=== PATIENT | male | born 1965 | race Caucasian/White ===

== ENCOUNTER → 2017-09-20 | Outpatient (CLI) | payer OTHER ==
--- NOTE | 2017-09-20 09:09 | REP ---
CT of the chest without IV contrast: There are no comparison chest CTs or plain film studies. There are numerous nodules and ground-glass densities throughout all lobes of both lungs. The largest nodule is in the lingula inferiorly measuring 2.4 cm. Next largest nodule is in the right middle lobe measuring 17 mm. The remainder of the nodules vary in size between five to 16 mm. There are no focal infiltrates. No pleural effusions. There are borderline enlarged mediastinal aorticopulmonic window lymph nodes measuring up to 9 mm short axis. In the absence of IV contrast the study is insensitive for hilar adenopathy. There is no axillary adenopathy. The unenhanced thoracic aorta is unremarkable. Cardiac size is normal. There is no pericardial effusion. In the visualized upper abdomen. The unenhanced visualized portions of the liver, gallbladder, pancreas and spleen are unremarkable. There is no adrenal mass. Impression: There are no comparison studies. There are numerous solid and ground-glass nodular densities throughout all lobes of each lung. The finding is nonspecific and could represent metastatic disease, bacterial versus fungal infectious disease, collagen vascular disease, and many other possibilities. Signed by Theo Puckett MD 09/20/2017 09:00 A
== END ==
LOC: M RAD 07:55
PROVIDERS: ATTEND Internal Medicine Nephrology
DX: R91.8 Other nonspecific abnormal finding of lung field (principal)

== ENCOUNTER → 2017-09-28 | Outpatient (CLI) | payer OTHER ==
[2017-09-28 14:26] LABS: INR 0.97
== END ==
LOC: M SMT 09:50
PROVIDERS: ATTEND Physician Assistant
DX: R91.8 Other nonspecific abnormal finding of lung field (principal)

== ENCOUNTER → 2017-10-14 | Outpatient (CLI) | payer OTHER ==
[~2017-10-14] MED LIST: ACETAMINOPHEN 325 MG TAB As Ordered; LIDOCAINE 1% MDV 20ML VIAL As Ordered
== END ==
LOC: M RADPRO 09:55
DX: R91.8 Other nonspecific abnormal finding of lung field (principal); Z79.899 Other long term (current) drug therapy; Z88.0 Allergy status to penicillin
CPT/HCPCS: 32405

== ENCOUNTER → 2017-11-18 | Outpatient (CLI) | payer OTHER | LOC: M SLEEP HO 12:45 | DX: R40.0 Somnolence (principal); R06.83 Snoring ==

== ENCOUNTER → 2017-12-15 | Outpatient (CLI) | payer OTHER | LOC: M RAD 07:10 | DX: R91.8 Other nonspecific abnormal finding of lung field (principal) | CPT/HCPCS: 71250 ==

== ENCOUNTER → 2017-12-30 | Outpatient (CLI) | payer OTHER | LOC: M SLEEP 19:44 | DX: G47.33 Obstructive sleep apnea (adult) (pediatric) (principal); G47.61 Periodic limb movement disorder; I49.49 Other premature depolarization | CPT/HCPCS: 95811 ==

== ENCOUNTER → 2018-06-13 | Outpatient (CLI) | payer OTHER | LOC: M RAD 15:37 | DX: R91.8 Other nonspecific abnormal finding of lung field (principal) | CPT/HCPCS: 71250 ==

== ENCOUNTER → 2018-08-15 | Outpatient (REF) | LOC: M SMT 15:18 | DX: Z00.00 Encounter for general adult medical examination without abnormal findings (principal) ==

== ENCOUNTER → 2018-12-05 | Outpatient (REF) | payer OTHER ==
[2018-12-05 13:47] LABS: APPEARANCE, URINE TURBID (CLEAR); BACTERIA, URINE AUTO NEGATIVE (NEGATIVE); BILIRUBIN, URINE AUTO NEGATIVE (NEGATIVE); BLOOD, URINE BLOOD 2+ (NEGATIVE); CALCIUM OXALATE CRYSTALS MODERATE; COLOR, URINE AMBER (YELLOW); GLUCOSE, URINE (UA) AUTO NEGATIVE (NEGATIVE); KETONE, URINE AUTO TRACE mg/dL (NEGATIVE); LEUKOCYTE ESTERASE, URINE AUTO 2+ (NEGATIVE); MUCUS, URINE LARGE (NEGATIVE); NITRITE, URINE AUTO POSITIVE (NEGATIVE); PROTEIN, URINE AUTO 2+ mg/dL (NEGATIVE); RBC, URINE AUTO 52 /HPF (0-3); SPECIFIC GRAVITY URINE AUTO 1.021 (1.002-1.035); SQUAMOUS EPITHELIAL CELL UR AU 1 /HPF (0-6); WBC, URINE AUTO TNTC /HPF (0-3)
== END ==
LOC: M SMT 13:00
PROVIDERS: ATTEND Nurse Practitioner Women's Health
DX: N13.2 Hydronephrosis with renal and ureteral calculous obstruction (principal)

== ENCOUNTER → 2018-12-26 | Outpatient (REF) | payer OTHER | LOC: M SMT 17:09 | PROVIDERS: ATTEND Nurse Practitioner Women's Health | DX: N39.0 Urinary tract infection, site not specified (principal) ==

== ENCOUNTER 2019-01-08 09:12 | Inpatient (IN) | payer OTHER ==
[~2019-01-08] VITALS: Ht 190.5 cm; Wt 145.2 kg
[2019-01-08 11:00] VITALS: BP 112/64
[2019-01-08] MEDS ORDERED: ATOR1TAB21 PO (11:45)
[2019-01-08] MEDS ORDERED: OMEP40CA2 PO (11:45)
[2019-01-08] MEDS ORDERED: POTA10808 PO (11:45)
[2019-01-08] MEDS ORDERED: ALLO100T PO (11:45)
[2019-01-08] MEDS ORDERED: SERT50TA PO (11:45)
[2019-01-08] MEDS ORDERED: LOSA100T50 PO (11:45)
[2019-01-08] MEDS ORDERED: ZYLO300T6 PO (11:45)
[2019-01-08] MEDS ORDERED: AMLO10TA5 PO (11:45)
[2019-01-08] MEDS ORDERED: FURO20TA2 PO (11:45)
[2019-01-08] MEDS ORDERED: LEVA1TAB2 PO (11:45)
[2019-01-08] MEDS ORDERED: PHEN-500 PO (11:46)
[2019-01-08] MEDS ORDERED: KETO10TAB PO (11:46)
[2019-01-08] MEDS ORDERED: CEFT1INJ3 IV (11:51)
[2019-01-08] MEDS ORDERED: ACET500T15 PO (11:51)
[2019-01-08] MEDS ORDERED: MERO1INJ IV (11:51)
[2019-01-08 12:00] VITALS: BP 103/59
[2019-01-08] MEDS ORDERED: ACETAMINOPHEN TAB 650MG DOSE (2X325MG) PO PRN (12:15)
[2019-01-08] MEDS: OMEPRAZOLE 20 MG CAP PO SCH (12:33)
[2019-01-08] MEDS: ATORVASTATIN 20 MG TAB PO SCH (12:34)
[2019-01-08 12:49] LABS: BASO % 0.2 % (0.0-1.0); HEMATOCRIT 36.6 % (42.0-52.0); HEMOGLOBIN 12.1 g/dl (13.5-17.5); LYMPH # 0.8 10^3/uL (1.5-4.5); MEAN CORPUSCULAR HEMOGLOBIN 30.8 pg (27.0-33.0); MEAN CORPUSCULAR HGB CONC 33.1 g/dl (32.0-36.5); MEAN CORPUSCULAR VOLUME 93.1 fl (80.0-96.0); MONO # 1.7 10^3/uL (0.0-0.8); MONO % 8.9 % (0.0-5.0); NEUTROPHILS # 16.5 10^3/uL (1.8-7.7); NEUTROPHILS % 86.5 % (36.0-66.0); PLATELET COUNT, AUTOMATED 170 10^3/uL (150-450); RED BLOOD COUNT 3.93 10^6/uL (4.30-6.10); WHITE BLOOD COUNT 19.1 10^3/uL (4.0-10.0)
[2019-01-08] MEDS: CIPROFLOXACIN 400 MG in APPROPRIATE DILUENT 1 EA IV SCH (13:08)
[2019-01-08] MEDS ORDERED: SLF 3 ML SYR IV PRN (13:15)
[2019-01-08] MEDS: SLF 3 ML SYR IV SCH ×2 (13:34→20:21)
[2019-01-08] MEDS: NS 1,000 ML IV SCH (13:34)
[2019-01-08 13:36] LABS: C REACTIVE PROTEIN QUANTITATIV 6.75 MG/DL (0.00-0.30); CALCIUM LEVEL 7.7 MG/DL (8.5-10.1); CREATININE FOR GFR 1.92 MG/DL (0.70-1.30); GLOMERULAR FILTRATION RATE 39.3 (>56); MAGNESIUM LEVEL 1.7 MG/DL (1.8-2.4); POTASSIUM SERUM 3.2 MEQ/L (3.5-5.1)
[2019-01-08 14:40] LABS: ERYTHROCYTE SEDIMENTATION RATE 16 mm/hr (0-20)
--- NOTE | 2019-01-08 14:44 | HPE ---
DATE OF ADMISSION: 01/08/2019 PRIMARY CARE PROVIDER: Dr. Maloney HISTORY OF PRESENT ILLNESS: The patient is a 54-year-old gentleman with a past medical history significant for kidney stones, recurrent urinary tract infection (UTI), depression, hypertension, who was transferred from [facility] to [facility] on 01/08/2019 for hematuria. The patient stated that he started having blood in the urine since yesterday morning around 5:00 a.m. The urine was dark red and the patient was noted to have right flank pain with radiation to the right groin. The patient also complained about fevers and chills since that time. Denies any other associated symptoms. The patient went to [facility]. The patient was found to have pyelonephritis and hematuria. Request was made for urology evaluation. PAST MEDICAL HISTORY: 1. Urinary tract infection (UTI). 2. Depression. 3. Hypercholesterolemia. 4. Hypertension. 5. Osteoarthritis. 6. Chronic kidney disease stage III. 7. Nephrolithiasis. 8. Obstructive sleep apnea. PAST SURGICAL HISTORY: 1. Gastric bypass. 2. Lithotripsy. 3. Right lung biopsy (benign findings). 4. Left total hip replacement. ALLERGIES: PENICILLIN (severe rash). SOCIAL HISTORY: The patient smoked less than one pack per day for around 8 years, quit in 1995. Denies alcohol use. Denies recreational drug use. REVIEW OF SYSTEMS: GENERAL: The patient complains of fever and chills since yesterday morning. HEENT: No vision changes noted. CARDIOVASCULAR: Denies any chest pain, palpitations. RESPIRATORY: Denies any shortness of breath, cough or wheezes. The patient does have a history of benign lung lesion, status post lung biopsy. The patient also has obstructive sleep apnea and is not on CPAP. GASTROINTESTINAL: Denies any nausea, vomiting, diarrhea, or abdominal pain. GENITOURINARY: The patient complained of hematuria and history of recent urinary tract infection (UTI). Complained of right flank pain with radiation to right groin. MUSCULOSKELETAL: Complains of intermittent lower extremity swelling. No muscle pain or joint pain. NEUROLOGIC: Denies any numbness or tingling. OBJECTIVE: VITAL SIGNS: Temperature 98.6, pulse is 67, respiration rate is 16, blood pressure 103/59, pulse oximetry 92% on room air. LABORATORY DATA: From [facility] from around midnight demonstrated WBC 9.5, hemoglobin 14.3, hematocrit 42.4, platelet count is 211. PT is 9.6, INR is 0.99, PTT is 25.4. Lactic acid 1.2. Sodium is 144, potassium 3.6, chloride 106, carbon dioxide 26, BUN 11, creatinine 1.4, glucose 109, GFR is 53. AST is 17, ALT 29, alkaline phosphatase 90, total bilirubin 0.7, total protein 6.1, albumin 3.3, lipase 185, magnesium 2.1. ASSESSMENT AND PLAN: 1. Sepsis secondary to urinary tract infection (UTI)/pyelonephritis. We will repeat a new set of laboratory data. The patient is currently in the progressive care unit (PCU). The patient had fever, chills, elevated white count. Per the transfer sign out, the patient was reported to have hypotension when the patient was in [facility] and the patient received fluid resuscitation. We will follow with a new set of laboratories. Followup with a new set of urine culture and blood cultures. The patient does have a history of Escherichia (E) coli urinary tract infection (UTI). The patient was started on Ciprofloxacin. The patient does have a penicillin allergy. 2. Hematuria with hydronephrosis. The patient was transferred from [facility] to [facility] for urology evaluation. Dr. Cristobal is notified. Urology consulted. The patient is currently being treated for pyelonephritis. The patient does have a history of kidney stones. Imaging studies were done in [facility]. Renal stone is noted from the scan. 3. Depression. Continue home medications. 4. Chronic kidney disease stage III. Continue to follow renal functions. 5. Hypertension. Per sign out, the patient had hypotension while the patient was at [facility], status post fluid support. When the patient arrived to our facility no hypotension was noted; however, we will continue with fluid support and continue to monitor patient's blood pressure. If the patient does have elevated blood pressure, we will adjust blood pressure medications if needed. At baseline, the patient is taking amlodipine, Lasix and losartan. 6. Deep vein thrombosis (DVT) prophylaxis. Due to hematuria, no anticoagulation will be given at this time. The patient will be on TEDs compressions.
[2019-01-08] MEDS ORDERED: POTASSIUM CHLORIDE 10 MEQ SR TABLET PO ONE (15:00)
[2019-01-08 15:37] LABS: BILIRUBIN, URINE MANUAL 1+ (NEGATIVE); GLUCOSE, URINE (UA) MANUAL NEGATIVE (NEGATIVE); KETONE, URINE MANUAL NEGATIVE (NEGATIVE); UROBILINOGEN, URINE MANUAL 1 MG mg/dl (NORMAL)
[2019-01-08 15:45] LABS: BACTERIA, URINE MOD AMOUNT; HYALINE CAST, URINE NONE SEEN /lpf (0-1); MUCUS, URINE SMALL AMOUNT (NEGATIVE); RBC, URINE TNTC /hpf (0-3); SQUAMOUS EPITHELIAL CELL URINE SMALL AMOUNT /hpf (SMALL AMT)
[2019-01-08 16:00] VITALS: BP_SYST 128; BP_DIAS 66; BP_DIAS 76
[2019-01-08] MEDS ORDERED: PHENAZOPYRIDINE 100 MG TAB PO SCH (16:00)
--- NOTE | 2019-01-08 16:40 | REP ---
Clinical: Hematuria. Technique: Two supine views of the abdomen and pelvis. Findings: Evaluation of the urinary tract system is severely limited due to overlying bowel gas pattern. No obvious urinary tract calcifications appreciated. No bowel obstruction. Skeletal structures intact. Left hip replacement. Impression: No bowel obstruction. Cannot exclude urinary tract calcifications. Electronically Signed by Michael Ivan MD 01/08/2019 04:33 P
[2019-01-08 20:00] VITALS: BP_SYST 120; BP_SYST 131; BP_DIAS 64; BP_DIAS 72
[2019-01-08] MEDS: ALLOPURINOL 300 MG TAB PO SCH (20:20)
[2019-01-08] MEDS: SERTRALINE HCL 50 MG TAB PO SCH (20:20)
[2019-01-09] VITALS (7 sets, daily range): BP systolic 120–160; BP diastolic 66–88
[2019-01-09] MEDS: NS 1,000 ML IV SCH
[2019-01-09] MEDS: CIPROFLOXACIN 400 MG in APPROPRIATE DILUENT 1 EA IV SCH ×2 (02:00→13:11)
[2019-01-09] MEDS: SLF 3 ML SYR IV SCH ×3 (05:30→22:00)
[2019-01-09 05:58] LABS: HEMATOCRIT 34.3 % (42.0-52.0); HEMOGLOBIN 10.9 g/dl (13.5-17.5); MEAN CORPUSCULAR HEMOGLOBIN 30.5 pg (27.0-33.0); MEAN CORPUSCULAR HGB CONC 31.8 g/dl (32.0-36.5); MEAN CORPUSCULAR VOLUME 96.1 fl (80.0-96.0); PLATELET COUNT, AUTOMATED 144 10^3/uL (150-450); RED BLOOD COUNT 3.57 10^6/uL (4.30-6.10); WHITE BLOOD COUNT 12.2 10^3/uL (4.0-10.0)
[2019-01-09 06:12] LABS: CALCIUM LEVEL 7.8 MG/DL (8.5-10.1); CREATININE FOR GFR 1.5 MG/DL (0.70-1.30); GLOMERULAR FILTRATION RATE 52.3 (>56); MAGNESIUM LEVEL 2.1 MG/DL (1.8-2.4); POTASSIUM SERUM 3.7 MEQ/L (3.5-5.1)
[2019-01-09] MEDS: ATORVASTATIN 20 MG TAB PO SCH (08:36)
[2019-01-09] MEDS: ALLOPURINOL 100 MG TAB PO SCH (08:36)
[2019-01-09] MEDS: OMEPRAZOLE 20 MG CAP PO SCH (08:36)
[2019-01-09] MEDS: amLODIPine 10 MG TAB PO SCH (10:47)
--- NOTE | 2019-01-09 12:38 | CR ---
DATE OF CONSULTATION: 01/09/2019 Mr. Royal is much more comfortable today. He has been afebrile overnight. His abdominal exam is benign. Laboratory studies reveal that his white count has come down to 12.2 from 19.1. His creatinine has also improved from 1.92 to 1.5. Results of his urine culture and blood cultures are pending. ASSESSMENT: Clinically improved apparent pyelonephritis with improvement in the patient's overall renal function as well as his white blood cell count. Plan is to hold off on any surgical intervention at this time. We will continue hydration and IV antibiotics. Awaiting the result of cultures. I have spoken to the patient and suggested that he remain in the hospital at least another day until at least the results of his culture are available and we can chose appropriate antibiotics. Will discuss with his primary care physician--can discharge before then as the need arises. ELIZABET
--- NOTE | 2019-01-09 14:05 | CR ---
DATE OF CONSULTATION: 01/08/2019 CHIEF COMPLAINT: 1. Gross hematuria. 2. Apparently right sided pyelonephritis. Franklin Royal is a 54-year-old male who presented to an outside institution yesterday with a short history of gross hematuria that was accompanied by some right sided flank and lower abdominal pain, which radiated to his testicle. The patient was admitted overnight to the outside hospital, but was transferred to [facility] early this morning for further evaluation and management of his persistent gross hematuria. According to the patient, a CT scan was done through the emergency room, which failed to reveal any evidence of stone. Of note, the patient had been seen in the office 2 months earlier and found to have a 2 mm distal right ureteral calculus, which he claims to have passed. He had been asymptomatic over the past few months until yesterday's presentation. Of note, he denies any dysuria. He denies any increased hesitancy. He claims his stream is adequate, though he is voiding smaller amounts. He senses adequate emptying of the bladder. He denies any urgency or urge incontinence. The patient does have a past medical history significant for stone disease, for which he has undergone a lithotripsy in the past. He has never required any endoscopic treatment for stones. He has never had any gross hematuria. Also, of note, the patient had undergone gastric bypass not too long ago. The patient does have a history of chronic kidney disease. PAST MEDICAL HISTORY: The patient's past medical history is significant for depression, hypertension, hypercholesterolemia, chronic kidney disease. SURGICAL HISTORY: Significant for gastric bypass, Extracorporeal shock wave lithotripsy (ESWL) was previously mentioned, total hip replacement. ALLERGIES: He claims to be allergic to PENICILLIN, which causes rash. SOCIAL HISTORY: He denies any alcohol use. He does have a history of tobacco use in the distant past. PHYSICAL EXAMINATION He is a well appearing male, lying in bed in no acute distress. His abdomen is obese, nontender. There are no palpable masses. No rebound or guarding. Specifically, there is no tenderness in the right lower quadrant. Testes are descended bilaterally and nontender. Rectal examination was deferred at this time. LABORATORY STUDIES: Revealed a hematocrit of 36.6, hemoglobin of 12.1, white blood cell count of 19,000 from a reported 9000 earlier from the outside hospital. BUN and creatinine 15/1.9. CT scan performed at an outside hospital, again failed to reveal any evidence of calculus disease, according to the patient. At my request, a KUB was obtained and did not reveal any obvious stones. His urine revealed too numerous to count red blood cells, 230 white blood cells, moderate bacteria per high powered field. He had already been started on Cipro. ASSESSMENT: 1. Gross hematuria. 2. Right flank pain with markedly elevated white count. PLAN: Check the results of his urine culture and continue on Cipro. We will rack_his urine to see if there is any improvement in the hematuria. Depending upon the patient's clinical picture, we will consider ureteroscopy or possible JJ stent placement if there is evidence of return of his pain with rise in his white count or creatinine. I discussed with the patient and his and they understand. The plan is to keep him nothing by mouth past midnight for the possibility of surgery tomorrow. Thank you very much for this consultation. I will be happy to follow along with you. ELIZABET
[2019-01-09] MEDS: ALLOPURINOL 300 MG TAB PO SCH (20:17)
[2019-01-09] MEDS: SERTRALINE HCL 50 MG TAB PO SCH (20:17)
--- NOTE | 2019-01-09 20:48 | IPNPDOC ---
Subjective Date Seen The patient was seen on 01/09/19. Subjective Chief Complaint/HPI Right flank pain, gross hematuria Events since last encounter The patient reports his right sided abdominal pain has nearly resolved. Denies any associated fevers chills or sweats today. Reports dementia appears to be clearing up as well. No nausea or vomiting. Tolerating oral intake. Objective Physical Examination General Exam: Positive: Alert, Cooperative, No Acute Distress Eye Exam: Positive: PERRLA ENT Exam: Positive: Mucous membr. moist/pink Chest Exam: Positive: Clear to auscultation, Normal air movement Heart Exam: Positive: Rate Normal, Normal S1, Normal S2 Abdomen Exam: Positive: Soft, Other (no tenderness in the abdomen. No flank tenderness/costovertebral angle tenderness) Neuro Exam: Positive: Other (awake, alert, oriented 3 and answering questions appropriately.) Assessment /Plan Assessment Acute pyelonephritis without definitive sepsis -Continue IV ciprofloxacin -Urine cultures - no growth -Appreciate input by urology - WBC improving, he was seemed to have resolved and clinically patient is doing better. Continue conservative treatment. -Was treated with IV fluidstolerating oral fluids well. Discontinued IV fluids Hematuria with hydronephrosis. -Was seen by urology. -Improvement clinically Depression. -Ct Zoloft Chronic kidney disease stage III -Creatinine better at 1.5 -Monitor Hypertension. -Continue amlodipine -Discontinue IV fluids Dispo: Possible dc home tmrw Plan/VTE VTE Prophylaxis Ordered?: Yes VS, I&O, 24H, Fishbone Vital Signs/I&O Vital Signs Date Time Temp Pulse Resp B/P (MAP) Pulse Ox O2 Delivery O2 Flow Rate FiO2 01/09/19 16:00 73 92 Room Air 01/09/19 16:00 98.5 17 139/76 (97) I&O- Last 24 Hours up to 6 AM 01/09/19 06:00 Intake Total 840 ml Output Total 1300 ml Balance -460 ml Laboratory Data 24H LABS Laboratory Tests 2 01/09/19 04:32: Nucleated Red Blood Cells % (auto) 0.0, Anion Gap 5L, Glomerular Filtration Rate 52.3L, Blood Urea Nitrogen 17, Creatinine 1.50H, Sodium Level 145, Potassium Level 3.7, Chloride Level 114H, Carbon Dioxide Level 26, Calcium Level 7.8L, Magnesium Level 2.1 CBC/BMP Laboratory Tests 01/09/19 04:32 Red Blood Count 3.57 L, Mean Corpuscular Volume 96.1 H, Mean Corpuscular Hemoglobin 30.5, Mean Corpuscular Hemoglobin Concent 31.8 L, Red Cell Distribution Width 15.2 H, Calcium Level 7.8 L Microbiology Microbiology 01/08/19 Blood Culture - Preliminary, Resulted No growth after 24 hours . All specim... 01/08/19 Blood Culture - Preliminary, Resulted No growth after 24 hours . All specim... 01/08/19 Urine Culture - Final, Complete EDY BUCIO MD Jan 09, 2019 20:48
[2019-01-10] VITALS: BP 120/65
[2019-01-10] MEDS ORDERED: NS 1,000 ML IV SCH
[2019-01-10] MEDS: CIPROFLOXACIN 400 MG in APPROPRIATE DILUENT 1 EA IV SCH (02:04)
[2019-01-10 04:00] VITALS: BP 120/56
[2019-01-10 05:17] LABS: HEMATOCRIT 33.7 % (42.0-52.0); MEAN CORPUSCULAR HEMOGLOBIN 30.9 pg (27.0-33.0); MEAN CORPUSCULAR HGB CONC 32.6 g/dl (32.0-36.5); MEAN CORPUSCULAR VOLUME 94.7 fl (80.0-96.0); PLATELET COUNT, AUTOMATED 150 10^3/uL (150-450); RED BLOOD COUNT 3.56 10^6/uL (4.30-6.10); WHITE BLOOD COUNT 7.7 10^3/uL (4.0-10.0)
[2019-01-10 05:35] LABS: BLOOD UREA NITROGEN 14 MG/DL (7-18); CALCIUM LEVEL 8.1 MG/DL (8.5-10.1); CARBON DIOXIDE LEVEL 27 MEQ/L (21-32); CHLORIDE LEVEL 114 MEQ/L (98-107); CREATININE FOR GFR 1.21 MG/DL (0.70-1.30); GLOMERULAR FILTRATION RATE > 60.0 (>56); GLUCOSE, FASTING 102 MG/DL (70-100); MAGNESIUM LEVEL 2.1 MG/DL (1.8-2.4); POTASSIUM SERUM 3.6 MEQ/L (3.5-5.1); SODIUM LEVEL 146 MEQ/L (136-145)
[2019-01-10] MEDS: SLF 3 ML SYR IV SCH (06:00)
[2019-01-10 08:00] VITALS: BP 144/88
[2019-01-10] MEDS: OMEPRAZOLE 20 MG CAP PO SCH (08:26)
[2019-01-10] MEDS: ALLOPURINOL 100 MG TAB PO SCH (08:26)
[2019-01-10] MEDS: ATORVASTATIN 20 MG TAB PO SCH (08:28)
[2019-01-10] MEDS: amLODIPine 10 MG TAB PO SCH (08:28)
--- NOTE | 2019-01-10 08:51 | IPN ---
DATE: 01/10/2019 Mr. Royal is in hospital day three with gross hematuria and presumed pyelonephritis. The patient is feeling much better. His urine has basically cleared with just a faint tinge of pink in a few of the specimens. His abdominal examination is perfectly benign. He is having no voiding complaints. LABORATORY STUDIES: Revealed that his white count has come all the way down to 7.7 thousand from 19.1 on admission. His creatinine this morning was 1.2, down from 1.9 on admission. His urine culture failed to reveal any bacterial growth as did his blood cultures, though I suspect that reflects the fact that he was started on antibiotics at the outside hospital he was in before coming here. PLAN: Discharge the patient home on oral antibiotics. We will make arrangements for outpatient followup with urology. I have discussed with the patient that he would probably benefit from cystoscopy to evaluate any possible sources of bleeding. Of note, the patient did bring in a stone that he passed at home. It is dark in color and I have asked for it to be sent out for analysis so this will be available as well.
[2019-01-10] MEDS ORDERED: METOPROLOL SUCC *XL* 12.5MG PER 1/2 TAB (TopROL *XL*) PO SCH (09:00)
[2019-01-10] MEDS ORDERED: CIPR500T3 PO (09:53)
[2019-01-10] MEDS ORDERED: METO1TAB32 PO (09:53)
[2019-01-10 10:50] VITALS: BP 144/82
--- NOTE | 2019-01-10 18:37 | DS.PDOC ---
Discharge Summary General Date of Admission Jan 08, 2019 at 10:57 Date of Discharge 01/10/19 Specialist/Consultants Involve: GENE ROPER MD Discharge Summary PROCEDURES PERFORMED DURING STAY: None ADMITTING DIAGNOSES: Sepsis secondary to UTI/pyelonephritis, hematuria with hydronephrosis, depression, chronic kidney disease stage III, hypertension DISCHARGE DIAGNOSES: 1. . COMPLICATIONS/CHIEF COMPLAINT: Pylonephitis,Hematuria. HISTORY OF PRESENT ILLNESS: The patient is a 53-year-old gentleman was transferred to a facility from an outside facility after presenting there with gross hematuria as well as right-sided flank pain along with hypotension with concerns regarding sepsis related to UTI/pyelonephritis in setting of possible nephrolithiasis/urolithiasis HOSPITAL COURSE: Acute pyelonephritis without definitive sepsis -Patient initially had some hypotension on presentation at outside facility, however, has been normotensive during his stay at our facility. -He was treated with IV ciprofloxacin. -He was seen in consultation by urology nightly has pyelonephritis as well as gross hematuria and concern regarding possible stone -Urine cultures showed no growth -The patient was treated with IV fluids with improvement in his WBC count. His WBC count was normal today. He is afebrile. Clinically he has improved with the IV fluids and IV antibiotics. He has inguinal fluids since yesterday and tolerating oral intake well. The rigidity seems to be clearing up as well. Given significant improvement as well as resolution of his initial symptoms, the patient will be discharged home today. He has been cleared by urology as well for discharge. Outpatient follow-up with urology has been advised. Hematuria with hydronephrosis. -Was seen by urology- hematuria has improved as noted. -Outpatient follow up with urology on discharge. Depression. -Ct Zoloft Chronic kidney disease stage III -Creatinine better at 1.21 -Monitor Hypertension. -Continue amlodipine -Discontinue IV fluids DISCHARGE MEDICATIONS: Please see below. ALLERGIES: Please see below. PHYSICAL EXAMINATION ON DISCHARGE: VITAL SIGNS: Please see below. GENERAL: Lying in bed. No distress CARDIOVASCULAR EXAMINATION: S1 S1, heard no rubs or gallops RESPIRATORY EXAMINATION: Clear to auscultation bilaterally ABDOMINAL EXAMINATION: Soft, nontender. No guarding. No rigidity. NEUROLOGICAL EXAMINATION: Awake, alert, answering questions appropriately LABORATORY DATA: Please see below. IMAGING: Abdominal x-ray: Impression: No bowel obstruction. Cannot exclude urinary tract calcifications. ACTIVITY: As tolerated. DIET: 2 g sodium DISCHARGE PLAN: Patient will be discharged home today. Outpatient follow-up with his primary care provider in one week and outpatient follow-up with urology. DISPOSITION: Home ITEMS TO FOLLOWUP ON ON OUTPATIENT: 1. Outpatient follow-up with urology for consideration for outpatient cystoscopy as well as to follow up on results of stone analysis DISCHARGE CONDITION: Stable. TIME SPENT ON DISCHARGE: 35 minutes. Vital Signs/I&Os Vital Signs Date Time Temp Pulse Resp B/P (MAP) Pulse Ox O2 Delivery O2 Flow Rate FiO2 01/10/19 08:28 82 144/88 01/10/19 08:00 97.4 17 96 01/10/19 06:00 Room Air 01/10/19 04:00 2.0 I&O- Last 24 Hours up to 6 AM 01/10/19 06:00 Intake Total 2360 ml Output Total 700 ml Balance 1660 ml Laboratory Data Labs 24H Laboratory Tests 2 01/10/19 04:58: Nucleated Red Blood Cells % (auto) 0.0, Anion Gap 5L, Glomerular Filtration Rate > 60.0, Blood Urea Nitrogen 14, Creatinine 1.21, Sodium Level 146H, Potassium Level 3.6, Chloride Level 114H, Carbon Dioxide Level 27, Calcium Level 8.1L, Magnesium Level 2.1 01/10/19 08:16: CBC/BMP Laboratory Tests 01/10/19 04:58 Red Blood Count 3.56 L, Mean Corpuscular Volume 94.7, Mean Corpuscular Hemoglobin 30.9, Mean Corpuscular Hemoglobin Concent 32.6, Red Cell Distribution Width 14.8 H, Calcium Level 8.1 L Microbiology Microbiology 01/08/19 Blood Culture - Preliminary, Resulted No growth after 24 hours . All specim... 01/08/19 Blood Culture - Preliminary, Resulted No growth after 24 hours . All specim... 01/08/19 Urine Culture - Final, Complete Discharge Medications Scheduled Allopurinol (Allopurinol) 100 Mg Tab, 100 MG PO QAM, (Reported) Allopurinol (Zyloprim) 300 Mg Tab, 300 MG PO QHS, (Reported) Amlodipine Besylate (Amlodipine Besylate) 10 Mg Tab, 10 MG PO DAILY, (Reported) Atorvastatin Calcium (Atorvastatin Calcium) 20 Mg Tab, 20 MG PO DAILY, (Reported) Ciprofloxacin HCl (Ciprofloxacin HCl) 500 Mg Tab, 500 MG PO BID Furosemide (Furosemide) 20 Mg Tab, 10 MG PO DAILY, (Reported) Losartan Potassium (Losartan Potassium) 100 Mg Tab, 100 MG PO DAILY, (Reported) Metoprolol Succinate (Metoprolol Succinate ER) 25 Mg Tab, 12.5 MG PO DAILY Omeprazole (Omeprazole) 40 Mg Cap, 40 MG PO DAILY, (Reported) Phenazopyridine HCl (Phenazopyridine HCl) 100 Mg Tab, 100 MG PO TID, (Reported) Potassium Citrate (Potassium Citrate 10MEQ (Urocit-K)) 1,080 Mg Tab, 1,080 MG PO BID, (Reported) 1080MG = 10MEQ Sertraline Hcl (Sertraline HCl) 50 Mg Tab, 50 MG PO QPM, (Reported) Scheduled PRN Acetaminophen (Acetaminophen) 500 Mg Tab, 1,000 MG PO Q6H PRN for PAIN, (Reported) Ketorolac Tromethamine (Ketorolac Tromethamine) 10 Mg Tab, 10 MG PO Q6H PRN for PAIN, (Reported) Allergies Coded Allergies: Penicillins (Unverified Allergy, Unknown, rash, 01/08/19) EDY BUCIO MD Jan 10, 2019 09:54
== END 2019-01-10 12:43 | disposition home or self-care (01) | DRG 463 ==
LOC: M PCU 10:57
PROVIDERS: ADMIT Internal Medicine; ATTEND Internal Medicine
DX: N39.0 Urinary tract infection, site not specified (principal); N13.30 Unspecified hydronephrosis; N18.3 Chronic kidney disease, stage 3 (moderate); R31.0 Gross hematuria; F32.9 Major depressive disorder, single episode, unspecified; I12.9 Hypertensive chronic kidney disease with stage 1 through stage 4 chronic kidney disease, or unspecified chronic kidney disease; Z79.899 Other long term (current) drug therapy; Z88.0 Allergy status to penicillin; E78.00 Pure hypercholesterolemia, unspecified; M19.90 Unspecified osteoarthritis, unspecified site; G47.33 Obstructive sleep apnea (adult) (pediatric); Z87.891 Personal history of nicotine dependence; N10 Acute pyelonephritis

== ENCOUNTER → 2019-02-07 | Outpatient (REF) | payer OTHER ==
[~2019-02-07] MED LIST changes: +ACET500T15 PO; -ACETAMINOPHEN 325 MG TAB As Ordered; +ALLO100T PO; +AMLO10TA5 PO; +ATOR1TAB21 PO; +CEFT1INJ5 IV; +CIPR500T3 PO; +FURO20TA2 PO; +KETO10TAB PO; +LEVA1TAB2 PO; -LIDOCAINE 1% MDV 20ML VIAL As Ordered; +LOSA100T50 PO; +MERO1INJ IV; +METO1TAB32 PO; +OMEP40CA2 PO; +PHEN-500 PO; +POTA10808 PO; +SERT-141 PO; +ZYLO300T6 PO
[2019-02-07 18:46] LABS: APPEARANCE, URINE MANUAL TURBID (CLEAR)
[2019-02-07 18:47] LABS: BILIRUBIN, URINE MANUAL NEGATIVE (NEGATIVE); BLOOD URINE MANUAL NEGATIVE (NEGATIVE); COLOR, URINE MANUAL YELLOW (YELLOW); GLUCOSE, URINE (UA) MANUAL NEGATIVE (NEGATIVE); KETONE, URINE MANUAL NEGATIVE (NEGATIVE); LEUKOCYTE ESTERASE, URINE MAN TRACE (NEGATIVE); NITRITE, URINE MANUAL NEGATIVE (NEGATIVE); PROTEIN, URINE MANUAL NEGATIVE (NEGATIVE); SPECIFIC GRAVITY,URINE MANUAL 1.025 (1.002-1.035); UROBILINOGEN, URINE MANUAL NORMAL (NORMAL)
[2019-02-07 20:31] LABS: AMORPHOUS SEDIMENT, URINE LARGE AMOUNT (NEGATIVE); BACTERIA, URINE NONE SEEN; HYALINE CAST, URINE NONE SEEN /lpf (0-1); RBC, URINE NONE SEEN /hpf (0-3); SQUAMOUS EPITHELIAL CELL URINE NONE SEEN /hpf (SMALL AMT); WBC, URINE 0-1 /hpf (0-3)
== END ==
LOC: M SMT 17:08
PROVIDERS: ATTEND Nurse Practitioner Women's Health
DX: N39.9 Disorder of urinary system, unspecified (principal)

== ENCOUNTER → 2019-02-09 | Outpatient (CLI) | payer OTHER ==
[2019-02-09 18:23] LABS: BLOOD UREA NITROGEN 13 MG/DL (7-18); CALCIUM LEVEL 8.7 MG/DL (8.5-10.1); CARBON DIOXIDE LEVEL 28 MEQ/L (21-32); CHLORIDE LEVEL 114 MEQ/L (98-107); CREATININE FOR GFR 1.11 MG/DL (0.70-1.30); GLOMERULAR FILTRATION RATE > 60.0 (>56); GLUCOSE, FASTING 96 MG/DL (70-100); POTASSIUM SERUM 4.7 MEQ/L (3.5-5.1); SODIUM LEVEL 145 MEQ/L (136-145)
== END ==
LOC: M SMT 12:08
PROVIDERS: ATTEND Nurse Practitioner Women's Health
DX: R31.0 Gross hematuria (principal); N13.30 Unspecified hydronephrosis

== ENCOUNTER → 2019-02-19 | Outpatient (CLI) | payer OTHER ==
[~2019-02-19] MED LIST changes: +ISOVUE-370 76% 100ML VIAL (Q9967) As Ordered ONE
--- NOTE | 2019-02-20 08:04 | REP ---
Clinical: Gross hematuria. Technique: Axial precontrast, contrast enhanced, and delayed images of the abdomen and pelvis using 100 ml Isovue 370 intravenous contrast material with coronal and sagittal re-formations. Comparison: 10/25/2013. Findings: The left kidney appears mildly atrophic and includes 2 mm nonobstructing lower pole calculus along with very small. Pelvic cysts and no evidence for perinephric stranding or hydroureteronephrosis. The right kidney is normal in size and demonstrates multiple peripelvic cysts measuring up to approximately 17 mm which made by ultrasound be confused with hydronephrosis. However there is no evidence for right-sided hydroureteronephrosis or nephroureterolithiasis. Despite mild left-sided atrophy, the kidneys demonstrate symmetric cortical enhancement. Delayed images demonstrate normal appearance to the collecting system and bladder. Liver, spleen, pancreas, gallbladder, and bilateral adrenal glands are normal. The patient is status post gastric bypass surgery. The enteric system is without obstruction or acute inflammatory process. Normal terminal ileum and appendix are identified in the right lower quadrant. Sigmoid diverticula noted without acute diverticulitis. Pelvis demonstrates normal bladder and prostate/seminal vesicles. No ascites. No free air. 1.2 cm fat containing periumbilical hernia identified. No adenopathy. Surrounding musculoskeletal structures are relatively normal. Evidence of prior left hip replacement. Lung bases are clear. Impression: 1. Mild atrophic appearance to the left kidney with 2 mm nonobstructing lower pole calculus. Few bilateral peripelvic simple cysts (right greater than left). 2. Few sigmoid diverticula without acute diverticulitis. 3. 1.2 cm fat containing periumbilical hernia. 4. Evidence of prior gastric bypass surgery and left hip replacement. Electronically Signed by Michael Ivan MD 02/20/2019 07:56 A
== END ==
LOC: M RAD 14:03
PROVIDERS: ATTEND Nurse Practitioner Women's Health
DX: N13.30 Unspecified hydronephrosis (principal); K44.9 Diaphragmatic hernia without obstruction or gangrene
CPT/HCPCS: 74178; Q9967

== ENCOUNTER → 2019-06-18 | Outpatient (CLI) | payer OTHER ==
[~2019-06-18] MED LIST changes: -ISOVUE-370 76% 100ML VIAL (Q9967) As Ordered ONE
--- NOTE | 2019-06-18 15:18 | REP ---
CT CHEST WITHOUT CONTRAST: HISTORY: Abnormal finding in the lung field. Comparison chest CT studies are reviewed from September 20, 2017, December 15, 2017, and June 13, 2018. CT FINDINGS: Digital preliminary hydramatic mechanic radiograph is unremarkable. There is a stable area of pleural plaquing along the right lower lobe posteriorly. This includes the previously noted 7 mm pleural-based nodular opacity which is again seen and is stable. There is an adjacent calcified right lower lobe granuloma which is unchanged. There is a calcified granuloma in the lingular segment left upper lobe also unchanged. The nodular opacities originally seen on the September 15, [address] study have resolved. No new pulmonary nodule is appreciated. No infiltrate is seen. No pleural or pericardial effusion is noted. No hilar or mediastinal mass is seen. There are scattered stable normal-sized mediastinal lymph nodes. Some vascular calcification is noted in the coronary distribution. The patient is status post gastric bypass procedure. There is a small accessory splenule. IMPRESSION: No acute disease. Electronically Signed by Zak Jonas MD 06/18/2019 04:25 P
== END ==
LOC: M RAD 09:40
PROVIDERS: ATTEND Internal Medicine Pulmonary Disease
DX: R91.8 Other nonspecific abnormal finding of lung field (principal)

== ENCOUNTER → 2019-11-28 | Outpatient (CLI) | payer OTHER ==
[~2019-11-28] MED LIST changes: -OMEP40CA2 PO; +OMEP40CA97 PO
--- NOTE | 2019-11-28 14:51 | REP ---
Clinical: Ureteral calculus. Technique: Two supine views of the abdomen and pelvis. Findings: No obvious urinary tract calcifications are appreciated. Bowel gas pattern is nonspecific. Skeletal structures demonstrate age-related degenerative changes and left hip replacement. Impression: No obvious urinary tract calcifications appreciated. Electronically Signed by Michael Ivan MD 11/28/2019 02:43 P
== END ==
LOC: M RAD 14:12
PROVIDERS: ATTEND Specialist
DX: N20.1 Calculus of ureter (principal)

== ENCOUNTER → 2019-12-04 | Outpatient (REF) | payer OTHER ==
[2019-12-04 13:26] LABS: AMORPHOUS SEDIMENT MODERATE (NEGATIVE); APPEARANCE, URINE TURBID (CLEAR); BACTERIA, URINE AUTO NEGATIVE (NEGATIVE); BILIRUBIN, URINE AUTO NEGATIVE (NEGATIVE); BLOOD, URINE BLOOD NEGATIVE (NEGATIVE); COLOR, URINE YELLOW (YELLOW); GLUCOSE, URINE (UA) AUTO NEGATIVE (NEGATIVE); KETONE, URINE AUTO NEGATIVE (NEGATIVE); LEUKOCYTE ESTERASE, URINE AUTO NEGATIVE (NEGATIVE); MUCUS, URINE SMALL (NEGATIVE); NITRITE, URINE AUTO NEGATIVE (NEGATIVE); PROTEIN, URINE AUTO NEGATIVE (NEGATIVE); RBC, URINE AUTO 0 /HPF (0-3); SPECIFIC GRAVITY URINE AUTO 1.021 (1.002-1.035); SQUAMOUS EPITHELIAL CELL UR AU 0 /HPF (0-6); UROBILINOGEN, URINE AUTO 0.2 mg/dL (0.0-2.0); WBC, URINE AUTO 0 /HPF (0-3)
== END ==
LOC: M SMT 13:01
PROVIDERS: ATTEND Nurse Practitioner Women's Health
DX: N20.0 Calculus of kidney (principal)

== ENCOUNTER 2019-12-20 05:53 | Day surgery (SDC) | payer OTHER ==
[~2019-12-20] VITALS: Ht 193 cm; Wt 130.6 kg
[~2019-12-20 05:53] MED LIST changes: +B-122500 PO; +CALC1TAB42 PO; +CARV3.12 PO; -MERO1INJ IV; +MERO1VIA3 IV; +MISO200T56 PO; +MULTCAP PO; +SUCR1SS PO
[2019-12-20] MEDS ORDERED: LR 1,000 ML IV ONE (06:00)
[2019-12-20] MEDS ORDERED: LIDOCAINE 1% MDV 20ML VIAL SQ PRN (06:00)
[2019-12-20] MEDS ORDERED: CIPROFLOXACIN 400 MG in IV 1 EA IV ONE (06:30)
[2019-12-20] MEDS ORDERED: fentaNYL 100 MCG/2 ML INJECTION (J3010) As Ordered ONE ×2 (07:45→07:48)
[2019-12-20] MEDS ORDERED: LIDOCAINE 2% INJ 100 MG/5 ML SDV (FOR ANES.) As Ordered ONE (07:45)
[2019-12-20] MEDS ORDERED: MIDAZOLAM INJ 2 MG/2 ML VIAL (J2250) As Ordered ONE (07:45)
[2019-12-20] MEDS ORDERED: ONDANSETRON 4MG/2ML VIAL (J2405) As Ordered ONE (07:45)
[2019-12-20] MEDS ORDERED: propofoL 200 MG/20 ML VIAL As Ordered ONE (07:46)
[2019-12-20] MEDS ORDERED: KETAMINE HCL 200 MG/20 ML VIAL As Ordered ONE (07:49)
[2019-12-20] MEDS ORDERED: ONDANSETRON 4MG/2ML VIAL (J2405) IV PRN (08:30)
[2019-12-20] MEDS ORDERED: LR 1,000 ML IV SCH (08:30)
[2019-12-20] MEDS ORDERED: oxyCODONE 5MG TAB PO PRN (08:30)
[2019-12-20 08:40] VITALS: BP 133/82
[2019-12-20] MEDS ORDERED: PERCOCET 5MG/325MG TAB PO PRN (08:45)
--- NOTE | 2019-12-21 07:39 | RO ---
DATE OF PROCEDURE: 12/20/2019 PREPROCEDURE DIAGNOSIS: Left kidney stone. POSTPROCEDURE DIAGNOSIS: Left kidney stone. PROCEDURE: Left extracorporeal shock wave lithotripsy. SURGEON: Mitchell Garcia MD CLINICAL APPEALS AUDITOR: None ANESTHESIA: Monitored anesthesia care (MAC). OPERATIVE INDICATIONS: This is a 54-year-old male who was found to have an approximately 1 cm nonobstructing left kidney stone. He is brought to the operating room today for above-listed procedure. DESCRIPTION OF PROCEDURE: The patient was brought to the operating room and MAC was administered. Prophylactic antibiotics were infused. He was then placed in supine position in preparation first for a left-sided extracorporeal shock wave lithotripsy. Shock waves were then delivered to the left-sided kidney stone, ungated. Of note, ultrasound was utilized to monitor stone position and fragmentation throughout the procedure. The stone did appear to fragment well. There were no arrhythmias. After 2500 shocks, the procedure was concluded. The patient was then awakened from anesthesia and transported to the recovery room in stable condition. ESTIMATED BLOOD LOSS: Zero mL. COMPLICATIONS: None. SPECIMENS: None. PLAN: The patient will followup in clinic in a few weeks for postoperative visit. ELIZABET
== END 2019-12-20 08:57 | disposition home or self-care (01) ==
LOC: M SDC 05:53
PROVIDERS: ATTEND Urology
DX: N20.0 Calculus of kidney (principal); I10 Essential (primary) hypertension; G47.30 Sleep apnea, unspecified; M19.90 Unspecified osteoarthritis, unspecified site; K25.9 Gastric ulcer, unspecified as acute or chronic, without hemorrhage or perforation; Z98.890 Other specified postprocedural states; Z87.442 Personal history of urinary calculi; Z98.84 Bariatric surgery status; Z87.891 Personal history of nicotine dependence; Z79.899 Other long term (current) drug therapy
CPT/HCPCS: 50590; J0744; J2250; J2405; J3010

== ENCOUNTER → 2019-12-31 | Outpatient (CLI) | payer OTHER ==
--- NOTE | 2020-01-01 23:10 | SLEEPCENT ---
DATE OF PROCEDURE: 12/31/2019 Ordered by: Terrence Mata PA-C Nocturnal polysomnography was performed in an attempt to titrate pressure therapy in this patient with obstructive sleep apnea syndrome. Apnea-hypopnea index 55.7. For testing, a ResMed Mirage FX nasal mask of standard size was used, 4 cm of water pressure applied to the circuit and the lights were extinguished. 7 hours and 6 minutes of data were reviewed. There were 302 minutes of sleep identified. Sleep latency was short at 4.5 minutes. REM latency was prolonged at 365 minutes. Sleep architecture showed poor progression with one REM cycle late in the test. Overall sleep efficiency was 71.7%. The electrocardiogram showed what appeared to be a sinus rhythm with frequent PVCs. EEG showed reasonably normal waveforms for awake and sleep. Titration was complicated by the emergence of central apneas at pressures exceeding 15. Late in the study pressures were increased. Best sleep was seen on a C-PAP pressure of 14. IMPRESSION Obstructive sleep apnea syndrome (G47.33) RECOMMENDATIONS Initiation of C-PAP at a pressure of 14 would seem reasonable based on these findings, however, as palliation was incomplete, if after becoming accustomed to the use of the device the patient has persistence of sleep symptoms, a return to the sleep disorder center for a full night titration may be helpful.
== END ==
LOC: M SLEEP 20:00
PROVIDERS: ATTEND Physician Assistant
DX: G47.33 Obstructive sleep apnea (adult) (pediatric) (principal)

== ENCOUNTER → 2020-01-07 | Outpatient (CLI) | payer OTHER ==
--- NOTE | 2020-01-07 17:03 | REP ---
RENAL ULTRASOUND: Real-time sonographic evaluation the kidneys performed. The patient reportedly has had lithotripsy 12/20/2019. Right kidney measures approximately 12.3 x 5.9 x 5.7 cm. Left kidney measures 13.7 x 6.1 x 6.3 cm. There is mild right hydronephrosis. There appears to be a large fluid collection involving the left kidney along the cortical surface, possibly a subcapsular fluid collection. This measures 8.4 x 5.6 x 7.7 cm. No left hydronephrosis is visualized. The ureteral jets are visualized in the urinary bladder bilaterally with Doppler color evaluation. IMPRESSION: Mild right hydronephrosis. Fluid collection along the cortex of the left kidney may represent a subcapsular fluid collection 8.4 x 5.6 x 7.7 cm. Ureteral jets seen in the urinary bladder bilaterally. Electronically Signed by Theo Hernandez MD 01/08/2020 10:24 A
== END ==
LOC: M RAD 14:29
PROVIDERS: ATTEND Nurse Practitioner Women's Health
DX: N20.0 Calculus of kidney (principal)

== ENCOUNTER → 2020-06-03 | Outpatient (REF) | payer OTHER ==
[~2020-06-03] MED LIST changes: -AMLO10TA5 PO; +AMLO1TAB25 PO
== END ==
LOC: M LAB REF 17:41
PROVIDERS: ATTEND Nurse Practitioner Family
DX: R80.9 Proteinuria, unspecified (principal)

== ENCOUNTER 2021-06-13 20:33 | Inpatient (IN) | payer MEDICARE, OTHER ==
[~2021-06-13] VITALS: Ht 193 cm; Wt 138.6 kg
[~2021-06-13 20:33] MED LIST changes: +OMEP40CA4 PO; -OMEP40CA97 PO
[2021-06-13] MEDS ORDERED: KETOROLAC 30 MG/ML 1ML VIAL IV PRN (21:15)
[2021-06-13] MEDS ORDERED: ONDANSETRON 4MG/2ML VIAL IV PRN (21:15)
[2021-06-13] MEDS ORDERED: ACETAMINOPHEN TAB 650MG DOSE (2X325MG) PO PRN (21:15)
[2021-06-13] MEDS ORDERED: LR 1,000 ML IV SCH (21:45)
[2021-06-13 22:32] VITALS: BP 140/71
[2021-06-13] MEDS: metroNIDAZOLE 500 MG in IV 1 EA IV SCH ×2 (22:50→23:00)
[2021-06-13] MEDS: CIPROFLOXACIN 400 MG in IV 1 EA IV SCH (22:57)
[2021-06-13] MEDS ORDERED: ZOLO100T PO (23:06)
[2021-06-13] MEDS ORDERED: CALC1TAB30 PO (23:06)
[2021-06-13] MEDS ORDERED: ALLO300T2 PO (23:06)
[2021-06-13] MEDS ORDERED: SUCR1TAB56 PO (23:06)
[2021-06-13] MEDS ORDERED: VITA500T73 PO (23:06)
[2021-06-13] MEDS ORDERED: VITMTA PO (23:06)
[2021-06-13] MEDS ORDERED: HOME MED LIST COMPLETE! XX SCH (23:10)
[2021-06-14] VITALS (8 sets, daily range): BP systolic 131–169; BP diastolic 69–82
[2021-06-14] MEDS: MORPHINE 2 MG/ML 1ML VIAL (J2270) IV PRN ×2 (01:16→06:52)
[2021-06-14] MEDS: metroNIDAZOLE 500 MG in IV 1 EA IV SCH ×3 (05:36→21:26)
[2021-06-14 05:39] LABS: BASO % 0.2 % (0.0-1.0); EOS % 0.4 % (0.0-3.0); HEMATOCRIT 24.9 % (42.0-52.0); HEMOGLOBIN 7.6 g/dl (13.5-17.5); LYMPH % 8.8 % (24.0-44.0); MEAN CORPUSCULAR HEMOGLOBIN 25.4 pg (27.0-33.0); MEAN CORPUSCULAR HGB CONC 30.5 g/dl (32.0-36.5); MEAN CORPUSCULAR VOLUME 83.3 fl (80.0-96.0); MONO # 1.1 10^3/uL (0.0-0.8); MONO % 9.4 % (2.0-8.0); NEUTROPHILS # 9.2 10^3/uL (1.5-8.5); NEUTROPHILS % 80.8 % (36.0-66.0); PLATELET COUNT, AUTOMATED 203 10^3/uL (150-450); RED BLOOD COUNT 2.99 10^6/uL (4.30-6.10); WHITE BLOOD COUNT 11.4 10^3/uL (4.0-10.0)
--- NOTE | 2021-06-14 05:50 | HPEPDOC ---
General Surgery H&P Date of Admission Jun 13, 2021 Attending Physician: WILFRED DAWSON MD History and Physical CHIEF COMPLAINT: abdominal pain HISTORY OF PRESENT ILLNESS: Patient is a 55 M transferred from [facility] where he presented with a 2 day history of abdominal pain. He actually has been admitted at [facility] since Tuesday for what appears to be melanotic stools, anemia, was observed there and received transfusion subsequently discharged home Tuesday. He denies any procedures then. At home on Tuesday patient started having periumbilical abdominal discomfort later becoming localized to the right lower quadrant through to the evening in the morning with some nausea. Patient presented to the emergency room with persistent and increasing right lower quadrant pain at [facility]. He was worked up and there. He did not have any leukocytosis. CT abdomen and pelvis was done confirming appendicitis and subsequently was transferred to our care for further management. Of note also he remains anemic with a hemoglobin of 8.4 at [facility]. ALLERGIES: Please see below. HOME MEDICATIONS: Please see below. PAST MEDICAL HISTORY: 1. history of morbid obesity s/p gastric bypass 2. anemia 3. kidney stones 4. obstructive sleep apena not using CPAP machine 5. arthritis 6. Some sort of heart arrhythmia for which he follows with Dr. Aguayo PAST SURGICAL HISTORY: 1. gastric bypass 2. left total hip replacement 3. lithotripsy PERSONAL/SOCIAL HISTORY: Used to be a smoker, quit remotely. Denies alcohol use. REVIEW OF SYSTEMS: Patient has mentioned has recent hospitalization for anemia, GI bleed and was just recently discharged from [facility]. He reports about 100 pound weight loss since his gastric bypass in 2019. He has some sort of heart arrhythmia for which he is on medications but he is not needing anticoagulation. He follows up with Dr. Aguayo for this. As reported to him this was benign. He denies any chest pains. He reports occasional palpitation from that heart arrhythmia. He denies any shortness of breath. Denies dysuria hematuria nocturia. PHYSICAL EXAMINATION: VITAL SIGNS: Please see below. GENERAL APPEARANCE: Patient seen laying flat at the bedside, relatively comfortable. [Awake, alert, oriented]. HEENT: Normocephalic, no facial asymmetry or lesions. Lips appear mildly dry.. CHEST: [No chest wall abnormalities. Normal respiratory motion/effort]. NECK: Short, supple, no jugular venous distention. LUNGS: [Lung sounds are clear to auscultation bilaterally. No wheezing appreciated]. HEART: [No chest wall abnormalities. Heart rate and rhythm are regular with no murmurs]. ABDOMEN: Obese, mildly round abdomen. Laparoscopic port sites from previous surgery noted. Small umbilical hernia, nonreducible. Normal overlying skin. Tender over the right lower quadrant area with mild guarding. Nontender no reports of the abdomen. SKIN: Warm and dry. EXTREMITIES: No significant extremity edema. NEUROLOGICAL: Awake, alert and oriented. ANCILLARIES: . LABORATORY DATA: Please see below. MICROBIOLOGY: Please see below. IMAGING: His CT scan of the abdomen and pelvis was performed at [facility]. I have a copy of the images with me and I reviewed the images. He does have evidence for appendicitis. There is inflammation surrounding a dilated appendix. Radiologist measured this is about 1.5 cm in greatest transverse dimension. IMPRESSION AND PLAN: Acute appendicitis with localized peritonitis Anemia, acute blood loss presumed to be secondary to gastrojejunal ulcer Gastric bypass status he is hemoglobin at [facility] is 8.4. Repeat this morning is 7.6. He is not symptomatic from this Patient symptoms consistent with acute appendicitis. He did not have any leukocytosis on presentation at [facility]. He got a dose of ceftriaxone and metronidazole at [facility]. I placed him on ciprofloxacin and metronidazole here and so far is gotten 1 dose. He is for laparoscopic appendectomy today. I discussed with the patient the details of the proposed procedure, the benefits of performing the procedure, the most common risks on doing the procedure. This may include risk from the anesthesia, risk from laparoscopy including bowel and vascular injury, risk from appendectomy including subsequent abscess formation. I have given him a chance to ask questions, voice out concerns. Patient has agreed to proceed Patient recently admitted at [facility] and actually was just discharged from the hospital with complaints of melena and was observed and this resolved on its own. No procedures done at that time. He reported he got transfusion at that time. He was not aware what his laboratory values were at the time of discharge. At [facility] he had a hemoglobin of 8.4. Repeat this morning is 7.6. No gross evidence of active bleeding. His last normal bowel movement has been Tuesday morning.. He did get a couple bags of IV crystalloids. I will just continue to monitor this for now. He may or may not need transfusion depending on the values. He may or may not need further evaluation such as upper endoscopy. Vital Signs Vital Signs Date Time Temp Pulse Resp B/P (MAP) Pulse Ox O2 Delivery O2 Flow Rate FiO2 06/14/21 01:26 18 06/13/21 22:32 99.9 71 140/71 (94) 96 Room Air I&Os I&O- Last 24 Hours up to 6 AM 06/14/21 06:00 Intake Total 200 ml Output Total 0 ml Balance 200 ml Laboratory Data Labs 24H Laboratory Tests 2 06/14/21 05:25: Immature Granulocyte % (Auto) 0.4, Neutrophils (%) (Auto) 80.8H, Lymphocytes (%) (Auto) 8.8L, Monocytes (%) (Auto) 9.4H, Eosinophils (%) (Auto) 0.4, Basophils (% ) (Auto) 0.2, Neutrophils # (Auto) 9.2H, Lymphocytes # (Auto) 1.0L, Monocytes # (Auto) 1.1H, Eosinophils # (Auto) 0.0, Basophils # (Auto) 0.0, Nucleated Red Blood Cells % (auto) 0.0 CBC/BMP Laboratory Tests 06/14/21 05:25 Home Medications Scheduled Allopurinol (Allopurinol) 100 Mg Tab, 100 MG PO DAILY, (Reported) Atorvastatin Calcium (Atorvastatin Calcium) 20 Mg Tab, 20 MG PO DAILY, (Reported) Calcium Carbonate/Vitamin D3 (Calcium 500-Vit D3 200 Caplet) 1 Each Tablet, 1 TAB PO DAILY, (Reported) Carvedilol (Carvedilol) 3.125 Mg Tablet, 3.125 MG PO BID, (Reported) Cyanocobalamin (Vitamin B-12) (Vitamin B-12) 500 Mcg Tablet, 500 MCG PO DAILY, (Reported) Losartan Potassium (Losartan Potassium) 100 Mg Tab, 100 MG PO DAILY, (Reported) Multivitamins (Thera M Plus Tablet) 1 Each Tablet, 2 TAB PO DAILY, (Reported) Omeprazole (Omeprazole) 40 Mg Cap, 40 MG PO DAILY, (Reported) Potassium Citrate (Potassium Citrate 10MEQ (Urocit-K)) 1,080 Mg Tab, 1,080 MG PO BID, (Reported) 1080MG = 10MEQ Sertraline Hcl (Zoloft) 100 Mg Tablet, 100 MG PO QPM, (Reported) TAKES AT DINNERTIME Sucralfate (Sucralfate) 1 Gm Tablet, 1 GM PO ACHS, (Reported) allopurinoL (allopurinoL) 300 Mg Tablet, 300 MG PO QHS, (Reported) Allergies Coded Allergies: Penicillins (Unverified Allergy, Intermediate, rash, 12/20/19) A-FIB/CHADSVASC A-FIB History Current/History of A-Fib/PAF?: No Current PO Anticoag Therapy: No WILFRED DAWSON MD Jun 14, 2021 05:50
[2021-06-14] MEDS ORDERED: LIDOCAINE 1% SDV 30ML VIAL As Ordered ONE (07:40)
[2021-06-14] MEDS ORDERED: BUPIVACAINE HCL 0.25% 30ML VIAL As Ordered ONE (07:40)
[2021-06-14] MEDS ORDERED: fentaNYL 250 MCG/5 ML INJECTION (J3010) As Ordered ONE (08:27)
[2021-06-14] MEDS ORDERED: ROCURONIUM BROMIDE 50 MG/5 ML VIAL As Ordered ONE ×2 (08:27→08:43)
[2021-06-14] MEDS ORDERED: LIDOCAINE 2% 100MG/5ML SDV (FOR ANES.) As Ordered ONE (08:27)
[2021-06-14] MEDS ORDERED: ACETAMINOPHEN 1000MG 100ML IV BTL (OFIRMEV) (J0131 PER 10MG) As Ordered ONE (08:27)
[2021-06-14] MEDS ORDERED: dexameTHASONE 4 MG/ML 1ML VIAL (J1100 PER 1MG) As Ordered ONE (08:27)
[2021-06-14] MEDS ORDERED: PHENYLephrine 500MCG 5ML (100MCG/ML) SYRINGE As Ordered ONE (08:27)
[2021-06-14] MEDS ORDERED: SUGAMMADEX SODIUM 500 MG/5 ML VIAL (BRIDION) As Ordered ONE (08:27)
[2021-06-14] MEDS ORDERED: ONDANSETRON 4MG/2ML VIAL As Ordered ONE (08:27)
[2021-06-14] MEDS ORDERED: propofoL 200 MG/20 ML VIAL As Ordered ONE ×2 (08:27→08:36)
[2021-06-14] MEDS ORDERED: MIDAZOLAM INJ 2MG/2ML VIAL (J2250 PER 1MG) As Ordered ONE (08:27)
[2021-06-14] MEDS ORDERED: VASOPRESSIN INJ 20 UNITS/ML VIAL As Ordered ONE (08:28)
[2021-06-14] MEDS ORDERED: ONDANSETRON 4MG/2ML VIAL IV PRN (09:50)
[2021-06-14] MEDS ORDERED: METOCLOPRAMIDE INJ 10MG/2ML VIAL (J2765 PER 1) IV PRN (09:50)
[2021-06-14] MEDS ORDERED: LR 1,000 ML IV SCH ×2 (09:50)
[2021-06-14] MEDS ORDERED: PERCOCET 5MG/325MG TAB PO PRN (09:50)
[2021-06-14] MEDS ORDERED: oxyCODONE 5MG TAB PO PRN (09:50)
[2021-06-14] MEDS ORDERED: HYDROMORPHONE HCL 0.5 MG/ 0.5 ML SYRINGE (J1170 PER 1) IV PRN (09:50)
[2021-06-14] MEDS ORDERED: fentaNYL 100 MCG/2 ML INJECTION (J3010) IV PRN (09:50)
[2021-06-14] MEDS: CIPROFLOXACIN 400 MG in IV 1 EA IV SCH ×2 (11:09→22:44)
[2021-06-14] MEDS: CARVedilol 3.125 MG TAB PO SCH ×2 (11:45→21:28)
[2021-06-14] MEDS: CALCIUM/VITAMIN D 500 MG TAB PO SCH (11:46)
[2021-06-14] MEDS: MULTIVITAMINS/MINERALS THERAP 1 TAB PO SCH (11:46)
[2021-06-14] MEDS: OMEPRAZOLE 20 MG CAP PO SCH (11:46)
[2021-06-14] MEDS: CYANOCOBALAMIN 500 MCG TAB PO SCH (11:46)
[2021-06-14] MEDS: ATORVASTATIN 20 MG TAB PO SCH (11:46)
[2021-06-14] MEDS: LOSARTAN 50MG TABLET PO SCH (11:46)
[2021-06-14] MEDS: SUCRALFATE 1 GM TAB PO SCH ×3 (11:46→21:26)
[2021-06-14] MEDS: POTASSIUM CITRATE 1080 MG (10MEQ) TAB PO SCH (17:12)
[2021-06-14] MEDS: SERTRALINE 100 MG TAB PO SCH (17:13)
[2021-06-14] MEDS: allopurinoL 300 MG TAB PO SCH (21:26)
[2021-06-15] VITALS (15 sets, daily range): BP systolic 98–131; BP diastolic 50–66
[2021-06-15] MEDS ORDERED: UNRESOLVED CLARIFICATION ENTRY XX SCH (00:01)
[2021-06-15] MEDS: metroNIDAZOLE 500 MG in IV 1 EA IV SCH ×3 (05:25→21:12)
--- NOTE | 2021-06-15 06:55 | ECGEPIP ---
[facility] Test Date: 2021-06-14 Pat Name: WAYNE ABERNATHY Department: Room: [place] [address] Gender: Male Phlebotomy Services Technician: ALEXANDREA : 1965 Requested By: WILFRED Martinez Order Number: [id number] Reading MD: Coleman Corral Measurements Intervals [place] Rate: 86 P: 37 MD: 142 QRS: 39 QRSD: 74 T: 69 QT: 336 QTc: 402 Interpretive Statements Normal sinus rhythm Early anterior R wave progression Nonspecific ST-T wave abnormalities Comparison tracing not on file Electronically Signed on 06-15-2021 6:55:14 EDT by Coleman Corral
[2021-06-15 07:06] LABS: BASO % 0.2 % (0.0-1.0); EOS % 0.1 % (0.0-3.0); HEMATOCRIT 22.2 % (42.0-52.0); LYMPH # 0.9 10^3/uL (1.5-5.0); LYMPH % 9.3 % (24.0-44.0); MEAN CORPUSCULAR HEMOGLOBIN 24.6 pg (27.0-33.0); MEAN CORPUSCULAR HGB CONC 29.3 g/dl (32.0-36.5); MEAN CORPUSCULAR VOLUME 84.1 fl (80.0-96.0); MONO # 0.9 10^3/uL (0.0-0.8); MONO % 9.5 % (2.0-8.0); NEUTROPHILS # 7.7 10^3/uL (1.5-8.5); NEUTROPHILS % 80.5 % (36.0-66.0); PLATELET COUNT, AUTOMATED 181 10^3/uL (150-450); RED BLOOD COUNT 2.64 10^6/uL (4.30-6.10); WHITE BLOOD COUNT 9.6 10^3/uL (4.0-10.0)
[2021-06-15 07:07] LABS: HEMOGLOBIN 6.5 g/dl (13.5-17.5)
[2021-06-15 07:23] LABS: BLOOD UREA NITROGEN 19 MG/DL (7-18); CALCIUM LEVEL 7.6 MG/DL (8.5-10.1); CARBON DIOXIDE LEVEL 27 MEQ/L (21-32); CHLORIDE LEVEL 110 MEQ/L (98-107); CREATININE FOR GFR 1.18 MG/DL (0.70-1.30); GLOMERULAR FILTRATION RATE > 60.0 (>56); GLUCOSE, FASTING 123 MG/DL (70-100); POTASSIUM SERUM 3.8 MEQ/L (3.5-5.1); SODIUM LEVEL 141 MEQ/L (136-145)
[2021-06-15] MEDS: CYANOCOBALAMIN 500 MCG TAB PO SCH (07:50)
[2021-06-15] MEDS: POTASSIUM CITRATE 1080 MG (10MEQ) TAB PO SCH ×2 (07:51→17:29)
[2021-06-15] MEDS: CALCIUM/VITAMIN D 500 MG TAB PO SCH (07:51)
[2021-06-15] MEDS: allopurinoL 100 MG TAB PO SCH (07:52)
[2021-06-15] MEDS: MULTIVITAMINS/MINERALS THERAP 1 TAB PO SCH (07:52)
[2021-06-15] MEDS: CARVedilol 3.125 MG TAB PO SCH ×2 (07:52→21:00)
[2021-06-15] MEDS: SUCRALFATE 1 GM TAB PO SCH ×4 (07:52→21:12)
[2021-06-15] MEDS: ATORVASTATIN 20 MG TAB PO SCH (07:53)
[2021-06-15] MEDS: OMEPRAZOLE 20 MG CAP PO SCH ×2 (07:53→21:12)
[2021-06-15] MEDS ORDERED: FUROSEMIDE 40 MG TAB PO ONE (08:15)
[2021-06-15] MEDS: LOSARTAN 50MG TABLET PO SCH (08:46)
[2021-06-15] MEDS: CIPROFLOXACIN 400 MG in IV 1 EA IV SCH ×2 (10:18→22:27)
--- NOTE | 2021-06-15 10:19 | ROOPDOC ---
[facility] Report Of Operation Report of Operation DATE OF PROCEDURE: 06/14/21 PREPROCEDURE DIAGNOSES: acute appendicitis. POSTPROCEDURE DIAGNOSES: acute appendicitis. (gangrenous appendix, locally perforated) PROCEDURE PERFORMED: Laparoscopic appendectomy. SURGEON: Wilfred Ng MD ANESTHESIA: General Endotracheal Anesthesia. ESTIMATED BLOOD LOSS: Approximately 20 mL. COMPLICATIONS: none. REMARKS: 55 M with 2 day history of abdominal pain (right lower quadrant) found to have evidence for acute appendicitis at [facility] and transferred to us for further care. FINDINGS: thick, gangrenous appendix and mesoappendix up to 2 cms in size, inflamed throughout its course, fluid distended base but relatively healthy, minimal involvement of the cecum SPECIMENS REMOVED: appendix PROCEDURE NOTE: appendix taken with a 45 mm endo MARCIO stapler with a green load, healthy staple line.. DESCRIPTION OF PROCEDURE: Patient received a dose of ciprofloxacin 400 mg IV and metronidazole 500 mg IV perioperatively. Patient was brought to the operating room, placed supine on the table. Sequential compression device placed for DVT prophylaxis. General endotracheal anesthesia started. The abdomen prepped and draped in usual sterile fashion. We paused for a surgical timeout using both pre-incision safety checklist to verify correct patient, procedure site and additional clinical information prior to beginning the procedure Entry into the abdomen done through an incision at the left upper quadrant. Veress needle inserted on a controlled fashion. Intra-abdominal placement confirmed with saline drop technique. CO2 insufflation started to a pressure of 15 mmHg. Using the same incision a 5 mm port was placed under direct vision of laparoscope. Insertion site was inspected for injury and none was found. He was placed on a Trendelenburg position the right side tilted to about 30 to allow for better visualization of the appendix. Review of the abdomen shows some omental adhesions over the epigastric area from prior gastric bypass surgery and subsequent reexploration for perforation. No adhered loops of small bowel noted. Omentum as well as what looks to be the appendix and cecum appears adhered to the right lateral abdominal sidewall with some fibrinous exudate in between the omentum and bowel. There were no free fluid, ascites noted. an 8 mm working ports then inserted to the left and slightly below the umbilicus to avoid a small umbilical hernia and another 5 mm port at the suprapubic area. Operative findings: The adhered omentum was then bluntly dissected off the abdominal wall and of the loops of bowel that it was encasing. This reveals very inflamed mesoappendix and appendix with fibrinous exudates on its wall. There is a small amount of hemorrhagic fluid that was released on freeing up the omentum. This was locally perforated. The appendix is difficult to grab secondary to the enlargement, swelling and inflammation. The lateral attachments of the appendix and cecum was freed up with the harmonic scalpel. The appendix was grasped to pull the base of the appendix into view. The mesoappendix was divided using Harmonic scalpel down to the base. Towards the base of the appendix this looks relatively healthy though relatively thin walled and fluid-filled and distended. The cecum where it attaches seems to be healthy. I chose to use a stapler for secure closure of the stump. I upsized my 8 mm port to a 12 mm stapler port. I used an Endo MARCIO 45 mm stapler with a green load to divide the appendix at the base. The staple line was inspected for bleeding. This looks healthy, intact with no active b leeding. Appendix was then delivered into an Endo Catch bag through the 12 mm port site. After re-insufflation the surgical site was inspected for hemostasis, the visualized fluid collections irrigated and suctioned off until clear return. Surrounding areas of the abdomen and inspected for fluid collections or signs of injury. The 12 mm port site was closed using a Garland Kunz device with 0 Vicryl in a mattress fashion. The abdomen was deflated. All ports removed. All skin incisions closed with 4-0 Monocryl in a subcuticular fashion. Steri-Strips and gauze dressing used for wound coverage. Patient was promptly awake and extubated and brought to recovery room stable. All counts of sponges and instruments verified to be correct. WILFRED NG MD Jun 15, 2021 10:19
--- NOTE | 2021-06-15 12:27 | IPNPDOC ---
Text Note Date of Service The patient was seen on 06/15/21. NOTE Patient feels much better. He is tolerating regular food. Postoperative temp eratures has been in the low 99's. No temperature above 100. Denies nausea, vomiting. Has not had any bowel movements. He is hemodynamically stable. His labs are noted to continue a downward trend of his hemoglobin down to 6.5 but he denies any shortness of breath, lightheadedness, chest pains. Vital signs stable Patient sitting up on the bed was working on his breakfast when I entered her room. Looks very comfortable Skin is warm dry Lung sounds clear to auscultation bilaterally Regular heart rate and rhythm Abdomen is minimally distended soft. Nontender over the right lower quadrant area where he had guarding yesterday. He has 3 port sites. All dressings are clean dry and intact. Impression and plan Acute appendicitis, gangrenous, locally perforated. He is now postop day 1 f ollowing laparoscopic appendectomy He looks to be doing well from the appendicitis point of view. His leukocytosis is resolved. We will continue IV antibiotics for today possibly switch this to oral antibiotics tomorrow. Acute anemia Anemia is worsening now a hemoglobin of 6.5 though he has not had any bloody bowel movement. He was admitted prior to this episode of appendicitis at [facility] and will was given 1 unit of blood. Initial hemoglobin at [place] 8.4, here in our hospital was 7.6 yesterday preoperatively. We will maintain him on twice daily PPI as well as sucralfate. We will give him 2 units of blood today. And continue to monitor. If he continues downward trend may need endoscopy though more likely that this is acute posthemorrhagic and he is not have any active bleeding at this time. This is believed to be secondary to a gastrojejunal ulcer. If he is ready to go home tomorrow and his hemoglobin hematocrit are stable then he may just need to follow-up with his bariatric surgeon for further monitoring and management of this or else he could follow-up with us in our clinic for outpatient endoscopy. VS,Fishbone, I+O VS, Fishbone, I+O Laboratory Tests 06/15/21 06:41 Vital Signs Date Time Temp Pulse Resp B/P (MAP) Pulse Ox O2 Delivery O2 Flow Rate FiO2 06/15/21 12:09 99.4 61 16 109/60 93 Room Air 06/14/21 15:00 2.0 I&O- Last 24 Hours up to 6 AM 06/15/21 06:00 Intake Total 2635 ml Output Total 20 ml Balance 2615 ml WILFRED DAWSON MD Jun 15, 2021 12:27
[2021-06-15] MEDS: SERTRALINE 100 MG TAB PO SCH (17:29)
[2021-06-15] MEDS: allopurinoL 300 MG TAB PO SCH (21:12)
[2021-06-16] MEDS: metroNIDAZOLE 500 MG in IV 1 EA IV SCH (05:22)
[2021-06-16 06:00] VITALS: BP 133/67
[2021-06-16 06:38] LABS: BASO % 0.4 % (0.0-1.0); EOS # 0.1 10^3/uL (0.0-0.5); EOS % 1.6 % (0.0-3.0); HEMATOCRIT 26.4 % (42.0-52.0); LYMPH # 1.5 10^3/uL (1.5-5.0); LYMPH % 21.1 % (24.0-44.0); MEAN CORPUSCULAR HEMOGLOBIN 25.3 pg (27.0-33.0); MEAN CORPUSCULAR HGB CONC 30.3 g/dl (32.0-36.5); MEAN CORPUSCULAR VOLUME 83.5 fl (80.0-96.0); MONO # 0.6 10^3/uL (0.0-0.8); NEUTROPHILS # 4.6 10^3/uL (1.5-8.5); NEUTROPHILS % 67.6 % (36.0-66.0); PLATELET COUNT, AUTOMATED 209 10^3/uL (150-450); RED BLOOD COUNT 3.16 10^6/uL (4.30-6.10); WHITE BLOOD COUNT 6.9 10^3/uL (4.0-10.0)
[2021-06-16 07:05] LABS: BLOOD UREA NITROGEN 17 MG/DL (7-18); CALCIUM LEVEL 7.7 MG/DL (8.5-10.1); CARBON DIOXIDE LEVEL 27 MEQ/L (21-32); CHLORIDE LEVEL 112 MEQ/L (98-107); CREATININE FOR GFR 1.09 MG/DL (0.70-1.30); GLOMERULAR FILTRATION RATE > 60.0 (>56); GLUCOSE, FASTING 99 MG/DL (70-100); POTASSIUM SERUM 3.4 MEQ/L (3.5-5.1); SODIUM LEVEL 145 MEQ/L (136-145)
[2021-06-16] MEDS: SUCRALFATE 1 GM TAB PO SCH ×4 (07:59→20:21)
[2021-06-16] MEDS: ATORVASTATIN 20 MG TAB PO SCH (08:00)
[2021-06-16] MEDS: allopurinoL 100 MG TAB PO SCH (08:00)
[2021-06-16] MEDS: MULTIVITAMINS/MINERALS THERAP 1 TAB PO SCH (08:00)
[2021-06-16] MEDS: CYANOCOBALAMIN 500 MCG TAB PO SCH (08:00)
[2021-06-16] MEDS: POTASSIUM CITRATE 1080 MG (10MEQ) TAB PO SCH ×2 (08:00→17:31)
[2021-06-16] MEDS: CALCIUM/VITAMIN D 500 MG TAB PO SCH (08:00)
[2021-06-16] MEDS: OMEPRAZOLE 20 MG CAP PO SCH ×2 (08:00→20:21)
[2021-06-16] MEDS: CARVedilol 3.125 MG TAB PO SCH ×2 (08:01→20:23)
[2021-06-16] MEDS: LOSARTAN 50MG TABLET PO SCH (08:01)
--- NOTE | 2021-06-16 08:45 | IPNPDOC ---
Text Note Date of Service The patient was seen on 06/16/21. NOTE General surgery. Dr. Ng The patient is a 55-year-old male admitted with acute appendicitis, status post laparoscopic appendectomy 06/14/2021. The patient is also known to have history of gastric bypass with recent admission at [facility] for melanotic stools, anemia, possible gastrojejunal ulcer. The patient was noted to have a hemoglobin of 6.5 yesterday morning, the patient received 2 units PRBCs 06/15 and this morning hemoglobin is noted to be 8.0. The patient denies any bloody bowel movements. T-max 99.4 VSS MMM Lungs are clear to auscultation S1-S2 regular rate rhythm Abdomen with surgical dressings intact, clean and dry. Mild tenderness around incision sites noted. No edema WBC 6.9 Hemoglobin 8 point Platelets 209 CRP 11.30, compared with 13.9 yesterday. Assessment/plan 1. Acute appendicitis, gangrenous, locally perforated. Status post laparos copic appendectomy as per Dr. Ng 06/14/2021. The patient is reviewed as per Dr. Ng. The patient is afebrile, leukocytosis resolved, CRP trending downward. The patient reports pain has been controlled. Tolerating regular diet. IV Cipro/Flagyl. 2. Acute anemia. The patient was noted to have a hemoglobin of 6.5 yesterday morning, the patient received 2 units PRBCs 06/15 and this morning hemoglobin is noted to be 8.0. He was noted to be admitted with anemia across hospital and was transfused 1 unit. The patient is noted to have a history of gastric bypass, anemia felt possibly related to gastrojejunal ulcer. Discussed with the patient possibly proceeding with EGD as per Dr. Ng, the patient is agreeable. We will tentatively schedule this for 06/17/2021. Continue PPI/Carafate. VS,Fishbone, I+O VS, Fishbone, I+O Laboratory Tests 06/16/21 06:13 Vital Signs Date Time Temp Pulse Resp B/P (MAP) Pulse Ox O2 Delivery O2 Flow Rate FiO2 06/16/21 08:01 121/66 06/16/21 08:01 77 06/16/21 06:00 97.5 16 97 Room Air 06/14/21 15:00 2.0 I&O- Last 24 Hours up to 6 AM 06/16/21 06:00 Intake Total 1880 ml Output Total 1000 ml Balance 880 ml Chloe Kwan Jun 16, 2021 08:45
[2021-06-16] MEDS: CIPROFLOXACIN 400 MG in IV 1 EA IV SCH (11:51)
[2021-06-16 14:00] VITALS: BP 122/65
[2021-06-16] MEDS: metroNIDAZOLE (FLAGYL) 500MG TABLET PO SCH ×2 (14:28→20:21)
[2021-06-16] MEDS: SERTRALINE 100 MG TAB PO SCH (17:31)
[2021-06-16] MEDS: CIPROFLOXACIN 500MG TABLET PO SCH (17:31)
[2021-06-16] MEDS: allopurinoL 300 MG TAB PO SCH (20:21)
[2021-06-16 22:00] VITALS: BP 146/74
[2021-06-17] MEDS: CIPROFLOXACIN 500MG TABLET PO SCH (06:00)
[2021-06-17] MEDS: metroNIDAZOLE (FLAGYL) 500MG TABLET PO SCH ×2 (06:00→15:21)
[2021-06-17 06:01] VITALS: BP 144/76
[2021-06-17 07:58] LABS: BASO % 0.5 % (0.0-1.0); EOS # 0.2 10^3/uL (0.0-0.5); EOS % 2.4 % (0.0-3.0); HEMATOCRIT 27.9 % (42.0-52.0); HEMOGLOBIN 8.6 g/dl (13.5-17.5); LYMPH # 1.9 10^3/uL (1.5-5.0); LYMPH % 30.5 % (24.0-44.0); MEAN CORPUSCULAR HEMOGLOBIN 25.4 pg (27.0-33.0); MEAN CORPUSCULAR HGB CONC 30.8 g/dl (32.0-36.5); MEAN CORPUSCULAR VOLUME 82.5 fl (80.0-96.0); MONO # 0.6 10^3/uL (0.0-0.8); MONO % 9.4 % (2.0-8.0); NEUTROPHILS # 3.5 10^3/uL (1.5-8.5); NEUTROPHILS % 56.7 % (36.0-66.0); PLATELET COUNT, AUTOMATED 249 10^3/uL (150-450); RED BLOOD COUNT 3.38 10^6/uL (4.30-6.10); WHITE BLOOD COUNT 6.2 10^3/uL (4.0-10.0)
[2021-06-17] MEDS: ATORVASTATIN 20 MG TAB PO SCH (08:39)
[2021-06-17] MEDS: allopurinoL 100 MG TAB PO SCH (08:39)
[2021-06-17] MEDS: POTASSIUM CITRATE 1080 MG (10MEQ) TAB PO SCH (08:39)
[2021-06-17] MEDS: CYANOCOBALAMIN 500 MCG TAB PO SCH (08:39)
[2021-06-17] MEDS: SUCRALFATE 1 GM TAB PO SCH ×2 (08:39→12:00)
[2021-06-17] MEDS: OMEPRAZOLE 20 MG CAP PO SCH (08:39)
[2021-06-17] MEDS: CALCIUM/VITAMIN D 500 MG TAB PO SCH (08:39)
[2021-06-17] MEDS: MULTIVITAMINS/MINERALS THERAP 1 TAB PO SCH (08:39)
[2021-06-17 08:42] VITALS: BP 140/71
[2021-06-17] MEDS: LOSARTAN 50MG TABLET PO SCH (08:42)
[2021-06-17] MEDS: CARVedilol 3.125 MG TAB PO SCH (08:42)
--- NOTE | 2021-06-17 08:55 | IPNPDOC ---
Text Note Date of Service The patient was seen on 06/17/21. NOTE General surgery. Dr. Dawson The patient is a 55-year-old male admitted with acute appendicitis, status post laparoscopic appendectomy 06/14/2021. The patient is also known to have history of gastric bypass with recent admission at [facility] for melanotic stools, anemia, possible gastrojejunal ulcer. The patient was noted to have a hemoglobin of 6.5 yesterday morning, the patient received 2 units PRBCs 06/15. Hemoglobin this morning 8.6 The patient denies any bloody bowel movements. Plan for EGD later today Afebrile VSS MMM Lungs are clear to auscultation S1-S2 regular rate rhythm Abdomen with surgical dressings intact, clean and dry. Mild tenderness around i ncision sites noted. No edema WBC 6.2 Hemoglobin 8.6 Assessment/plan 1. Acute appendicitis, gangrenous, locally perforated. Status post laparoscopic appendectomy as per Dr. Dawson 06/14/2021. The patient is reviewed as per Dr. Dawson. The patient is afebrile, leukocytosis resolved. The patient reports pain has been controlled. Tolerating regular diet. IV Cipro/Flagyl. 2. Acute anemia. The patient was noted to have a hemoglobin of 6.5 06/15, the patient received 2 units PRBCs 06/15. Hemoglobin this morning is stable at 8.6 compared with 8.0 yesterday. The patient is noted to have a history of gastric bypass, anemia felt possibly related to gastrojejunal ulcer. Plan for EGD later today as per Dr. Dawson to further evaluate. Continue PPI/Carafate. VS,Fishbone, I+O VS, Fishbone, I+O Laboratory Tests 06/17/21 07:18 Vital Signs Date Time Temp Pulse Resp B/P (MAP) Pulse Ox O2 Delivery O2 Flow Rate FiO2 06/17/21 08:42 140/71 06/17/21 08:42 71 06/17/21 06:01 98.8 15 95 06/16/21 22:00 Room Air 06/14/21 15:00 2.0 I&O- Last 24 Hours up to 6 AM 06/17/21 05:59 Intake Total 1450 ml Balance 1450 ml Chloe Kwan Jun 17, 2021 08:55 WILFRED DAWSON MD Jun 30, 2021 08:10
[2021-06-17] MEDS ORDERED: LIDOCAINE 2% 100MG/5ML SDV (FOR ANES.) As Ordered ONE (12:49)
[2021-06-17] MEDS ORDERED: propofoL 200 MG/20 ML VIAL As Ordered ONE (12:49)
[2021-06-17 14:00] VITALS: BP 149/90
[2021-06-17] MEDS ORDERED: CIPR-249 PO (15:04)
[2021-06-17] MEDS ORDERED: FLAG500T PO (15:04)
--- NOTE | 2021-06-30 08:12 | DS.PDOC ---
Discharge Summary General Date of Admission Jun 13, 2021 at 20:34 Date of Discharge June 17, 2021 Discharge Summary PROCEDURES PERFORMED DURING STAY: Laparoscopic appendectomy (June 14, 2021). ADMITTING DIAGNOSES: 1. Acute appendicitis 2. Post hemorrhagic anemia suspected to be secondary to gastrojejunal ulcer 3. Gastric bypass status. DISCHARGE DIAGNOSES: 1. Acute appendicitis 2. Post hemorrhagic anemia suspected to be secondary to gastrojejunal ulcer, status post transfusion 2 units packed RBC 3. Gastric bypass status. COMPLICATIONS/CHIEF COMPLAINT: Appendicitis,Possible Anastomotic Ulcer. HISTORY OF PRESENT ILLNESS: Patient is a 55 M transferred from [facility] where he presented with a 2 day history of abdominal pain. He actually has been admitted at since Tuesday for what appears to be melanotic stools, anemia, was observed there and received transfusion subsequently discharged home Tuesday. He denies any procedures then. At home on Tuesday patient started having periumbilical abdominal discomfort later becoming localized to the right lower quadrant through to the evening in the morning with some nausea. Patient presented to the emergency room with persistent and increasing right lower quadrant pain at [facility]. He was worked up and there. He did not have any leukocytosis. CT abdomen and pelvis was done confirming appendicitis and subsequently was transferred to our care for further management. Of note also he remains anemic with a hemoglobin of 8.4 at [facility]. HOSPITAL COURSE: Patient was transferred from [facility] ED and started on antibiotics overnight. I repeated the CBC early in the morning and his hemoglobin is noted to come down a little bit more from the baseline at 8.4-7.6 the morning. He was brought to the operating room and underwent laparoscopic appendectomy. He had locally perforated appendix. I continued him on IV antibiotics but otherwise we progressed with his diet starting with clear liquids immediately after the procedure and by the morning was able to tolerate regular food. He felt improved and was not showing any signs of persistent systemic inflammatory response, fever or severe tachycardia postoperatively. We did note that his hemoglobin dropped down to 6.5 and 22 of hematocrit the following morning. He was not having any bloody bowel movements nor any melanotic stools. He denies any chest pains, lightheadedness. He was able to ambulate from the bed to the bathroom. I given 2 units of packed RBCs and continue to monitor his blood counts. This came up to 8 and 26 and remained relatively stable throughout the rest of his stay. Vince to do an upper endoscopy and scheduled him on June 17 but unfortunately despite us ordering him to be n.p.o. he was given breakfast and patient ate his breakfast. Given that he is asymptomatic and his counts been stable I decided to forego the endoscopy at this time and plan to do with his an outpatient basis on follow-up with me. He has had 3 days of extra doses of IV antibiotics and his leukocytosis is resolved. DISCHARGE MEDICATIONS: Please see below. ALLERGIES: Please see below. PHYSICAL EXAMINATION ON DISCHARGE: VITAL SIGNS: Please see below. GENERAL: Comfortable HEENT: Normocephalic, pink palpebral conjunctiva NECK: Supple, no jugular venous distention CARDIOVASCULAR EXAMINATION: Regular heart rate and rhythm RESPIRATORY EXAMINATION: Clear breath sounds auscultation bilaterally ABDOMINAL EXAMINATION: Obese, soft, nondistended nontender. 3 laparoscopic port sites which are healing accordingly. No active drainage. EXTREMITIES: No significant extremity edema SKIN: No rashes, no skin breakdowns NEUROLOGICAL EXAMINATION: Awake, alert and oriented LABORATORY DATA: Please see below. IMAGING: None PROGNOSIS: Good ACTIVITY: Light activity till the end of the week then advance as tolerated DIET: As tolerated DISCHARGE PLAN: Patient will be discharged home on 5 more days of antibiotics to complete his short antibiotic course. He is instructed to follow-up with me in the clinic and we will arrange for an outpatient endoscopy DISPOSITION: 01 Home, Self-Care. DISCHARGE INSTRUCTIONS: 1. As above. Follow-up in 2 weeks. DISCHARGE CONDITION: Stable. TIME SPENT ON DISCHARGE: 30 minutes. Discharge Medications Scheduled Allopurinol (Allopurinol) 100 Mg Tab, 100 MG PO DAILY, (Reported) Atorvastatin Calcium (Atorvastatin Calcium) 20 Mg Tab, 20 MG PO DAILY, (Reported) Calcium Carbonate/Vitamin D3 (Calcium 500-Vit D3 200 Caplet) 1 Each Tablet, 1 TAB PO DAILY, (Reported) Carvedilol (Carvedilol) 3.125 Mg Tablet, 3.125 MG PO BID, (Reported) Ciprofloxacin HCl (Cipro) 500 Mg Tablet, 500 MG PO BID@18 Cyanocobalamin (Vitamin B-12) (Vitamin B-12) 500 Mcg Tablet, 500 MCG PO DAILY, (Reported) Losartan Potassium (Losartan Potassium) 100 Mg Tab, 100 MG PO DAILY, (Reported) Metronidazole (Flagyl) 500 Mg Tablet, 500 MG PO TID Multivitamins (Thera M Plus Tablet) 1 Each Tablet, 2 TAB PO DAILY, (Reported) Omeprazole (Omeprazole) 40 Mg Cap, 40 MG PO DAILY, (Reported) Potassium Citrate (Potassium Citrate 10MEQ (Urocit-K)) 1,080 Mg Tab, 1,080 MG PO BID, (Reported) 1080MG = 10MEQ Sertraline Hcl (Zoloft) 100 Mg Tablet, 100 MG PO QPM, (Reported) TAKES AT DINNERTIME Sucralfate (Sucralfate) 1 Gm Tablet, 1 GM PO ACHS, (Reported) allopurinoL (allopurinoL) 300 Mg Tablet, 300 MG PO QHS, (Reported) Allergies Coded Allergies: Penicillins (Unverified Allergy, Intermediate, rash, 12/20/19) WILFRED DAWSON MD Jun 30, 2021 08:12
== END 2021-06-17 17:15 | disposition home or self-care (01) | DRG 339 ==
LOC: M MS5PR 20:34
PROVIDERS: ADMIT Surgery; ATTEND Surgery
PROC: 0DTJ4ZZ Resection of Appendix, Percutaneous Endoscopic Approach (ICD-10-PCS; principal; 2021-06-14 07:00)
PROC: 30233N1 Transfusion of Nonautologous Red Blood Cells into Peripheral Vein, Percutaneous Approach (ICD-10-PCS; 2021-06-15)
DX: K35.32 Acute appendicitis with perforation, localized peritonitis, and gangrene, without abscess (principal); D62 Acute posthemorrhagic anemia; K28.9 Gastrojejunal ulcer, unspecified as acute or chronic, without hemorrhage or perforation; G47.33 Obstructive sleep apnea (adult) (pediatric); I49.9 Cardiac arrhythmia, unspecified; M19.90 Unspecified osteoarthritis, unspecified site; Z96.642 Presence of left artificial hip joint; Z98.84 Bariatric surgery status; Z87.891 Personal history of nicotine dependence; Z87.442 Personal history of urinary calculi; Z79.899 Other long term (current) drug therapy; Z88.0 Allergy status to penicillin

== ENCOUNTER → 2021-10-13 | Outpatient (REF) | payer OTHER ==
[~2021-10-13] MED LIST changes: +ALLO300T2 PO; +CALC1TAB30 PO; +CIPR-249 PO; +FLAG500T PO; +SUCR1TAB56 PO; +VITA500T73 PO; +VITMTA PO; +ZOLO100T PO
[2021-10-13 17:48] LABS: PERCENT SATURATION 6.3 % (19.7-50.0)
== END ==
LOC: M LAB REF 17:18
PROVIDERS: ATTEND Nurse Practitioner Family
DX: D50.9 Iron deficiency anemia, unspecified (principal); N20.0 Calculus of kidney

== ENCOUNTER 2021-10-29 08:42 | Outpatient (CLI) | payer MEDICARE, OTHER ==
[~2021-10-29] VITALS: Ht 190.5 cm; Wt 141.8 kg
[~2021-10-29 08:42] MED LIST changes: +IRON SUCROSE 25 MG in NS 25 ML IV ONE; +IRON SUCROSE 475 MG in NS 250 ML IV ONE; +IRON SUCROSE 500 MG in NS 250 ML IV ONE; +LOSA100T45 PO; -LOSA100T50 PO
[2021-10-29 08:55] VITALS: BP 187/96
[2021-10-29] MEDS ORDERED: IRON SUCROSE 500 MG in NS 250 ML IV ONE (09:00)
[2021-10-29] MEDS ORDERED: IRON SUCROSE 25 MG in NS 25 ML IV ONE (09:00)
[2021-10-29 11:15] VITALS: BP 161/94
[2021-10-29 12:15] VITALS: BP 169/81
[2021-10-29 13:15] VITALS: BP 170/84
[2021-10-29 14:00] VITALS: BP 156/88
[2021-10-29 14:34] VITALS: BP 136/80
== END 2021-10-29 14:35 | disposition home or self-care (01) ==
LOC: M INFU 08:42
PROVIDERS: ATTEND Internal Medicine Nephrology
DX: D50.9 Iron deficiency anemia, unspecified (principal); Z88.0 Allergy status to penicillin
CPT/HCPCS: 96365; 96366; J1756

== ENCOUNTER 2021-11-12 09:06 | Outpatient (CLI) | payer MEDICARE, OTHER ==
[~2021-11-12] VITALS: Ht 193 cm; Wt 142.3 kg
[~2021-11-12 09:06] MED LIST changes: +ALBUTEROL SULFATE 2.5 MG/0.5 ML INH NEB SOLN INH PRN; +EPINEPHrine INJ 1 MG/ML 1ML AMP IM PRN; -IRON SUCROSE 25 MG in NS 25 ML IV ONE; -IRON SUCROSE 475 MG in NS 250 ML IV ONE; +diphenhydrAMINE 50MG/ML VIAL (J1200) IV PRN; +methylPREDNISolone 125MG 2ML VIAL IV PRN
[2021-11-12 09:20] VITALS: BP 149/86
[2021-11-12 13:00] VITALS: BP 152/90
[2021-11-12 13:55] VITALS: BP 140/74
== END 2021-11-12 14:10 | disposition home or self-care (01) ==
LOC: M INFU 09:06
PROVIDERS: ATTEND Internal Medicine Nephrology
DX: D50.9 Iron deficiency anemia, unspecified (principal); Z88.0 Allergy status to penicillin
CPT/HCPCS: 96365; 96366; J1756

== ENCOUNTER → 2024-05-12 | Outpatient (CLI) | payer MEDICARE, OTHER ==
[~2024-05-12] MED LIST changes: -ALBUTEROL SULFATE 2.5 MG/0.5 ML INH NEB SOLN INH PRN; -EPINEPHrine INJ 1 MG/ML 1ML AMP IM PRN; -IRON SUCROSE 500 MG in NS 250 ML IV ONE; -LOSA100T45 PO; +LOSA100T46 PO; -MISO200T56 PO; +MISO200T83 PO; -diphenhydrAMINE 50MG/ML VIAL (J1200) IV PRN; -methylPREDNISolone 125MG 2ML VIAL IV PRN
== END ==
LOC: M RAD 14:23
PROVIDERS: ATTEND Physician Assistant Medical
DX: M25.551 Pain in right hip (principal)

== ENCOUNTER → 2024-05-29 | Outpatient (REF) | payer MEDICARE, OTHER, MEDICAID ==
[2024-05-29 18:37] LABS: FERRITIN 10.4 NG/ML (10.5-307.3)
[2024-05-29 18:45] LABS: PERCENT SATURATION 16.4 % (19.7-50.0)
== END ==
LOC: M LAB REF 17:18
PROVIDERS: ATTEND Nurse Practitioner Family
DX: D64.9 Anemia, unspecified (principal)

== ENCOUNTER → 2024-06-14 | Outpatient (CLI) | payer MEDICAID, MEDICARE | LOC: M RAD 08:27 | PROVIDERS: ATTEND Nurse Practitioner Family | DX: N20.0 Calculus of kidney (principal) ==

== ENCOUNTER → 2024-07-28 | Outpatient (CLI) | payer MEDICARE | LOC: M RAD 08:22 | PROVIDERS: ATTEND Nurse Practitioner Family | DX: N20.0 Calculus of kidney (principal) ==

== ENCOUNTER 2024-09-12 08:10 | Day surgery (SDC) | payer MEDICARE, OTHER ==
[~2024-09-12] VITALS: Ht 193 cm; Wt 160.0 kg
[~2024-09-12 08:10] MED LIST changes: -POTA10808 PO; +POTA10809 PO; +THERTAB52 PO
[2024-09-12] MEDS ORDERED: NS 1,000 ML IV SCH ×2 (09:05→12:25)
[2024-09-12] MEDS ORDERED: ceFAZolin SOD 3 GM in IV 1 EA IV ONE (09:05)
[2024-09-12] MEDS ORDERED: GABA-1172 PO (09:13)
[2024-09-12] MEDS ORDERED: NORV5TAB PO (09:13)
[2024-09-12] MEDS ORDERED: MIDAZOLAM INJ 2MG/2ML VIAL As Ordered ONE (09:21)
[2024-09-12] MEDS ORDERED: LIDOCAINE 2% 100MG/5ML SDV (FOR ANES.) As Ordered ONE (09:21)
[2024-09-12] MEDS ORDERED: ONDANSETRON 4MG 2ML VIAL As Ordered ONE (09:21)
[2024-09-12] MEDS ORDERED: fentaNYL 100 MCG/2 ML INJECTION As Ordered ONE (09:21)
[2024-09-12] MEDS ORDERED: propofoL 200 MG/20 ML VIAL As Ordered ONE (09:21)
[2024-09-12] MEDS ORDERED: ACETAMINOPHEN 1000MG/100ML IV BAG As Ordered ONE (09:22)
[2024-09-12] MEDS: ceFAZolin SOD 1 GM in DEXTROSE 5% (D5W) ADV/MINI-BAG 50 ML IV ONE (10:58)
[2024-09-12] MEDS: ceFAZolin SOD 2 GM in IV 1 EA IV ONE (10:58)
[2024-09-12] MEDS ORDERED: ePHEDrine SULFATE 25 MG/5 ML(5MG/ML) SYRINGE As Ordered ONE (11:09)
[2024-09-12] MEDS: ISOVUE-300 61% 100ML VIAL As Ordered ONE (12:00)
[2024-09-12] MEDS ORDERED: ONDANSETRON 4MG 2ML VIAL IV PRN (12:25)
[2024-09-12] MEDS ORDERED: HYDROMORPHONE HCL 0.5 MG/ 0.5 ML SYRINGE IV PRN (12:25)
[2024-09-12] MEDS ORDERED: fentaNYL 100 MCG/2 ML INJECTION IV PRN (12:25)
[2024-09-12] MEDS: oxyCODONE 5MG TAB PO PRN (12:32)
[2024-09-12 13:05] VITALS: BP 171/79; TEMP 97.3; O2SAT 95
[2024-09-13] MEDS ORDERED: PERC5TAB12 PO (00:28)
== END 2024-09-12 13:35 | disposition home or self-care (01) ==
LOC: M SDC 08:10
PROVIDERS: ATTEND Urology
DX: N20.2 Calculus of kidney with calculus of ureter (principal); G47.30 Sleep apnea, unspecified; E66.01 Morbid (severe) obesity due to excess calories; Z68.41 Body mass index [BMI] 40.0-44.9, adult; Z88.0 Allergy status to penicillin; Z79.899 Other long term (current) drug therapy

== ENCOUNTER 2024-09-12 20:24 | Emergency (ER) | payer MEDICARE, OTHER ==
[~2024-09-12] VITALS: Ht 193 cm; Wt 159.6 kg
[~2024-09-12 20:24] MED LIST changes: +GABA-1172 PO; +NORV5TAB PO
[2024-09-12 20:30] VITALS: TEMP 97.5
[2024-09-12] MEDS: NS (Normal Saline) 0.9% 1,000 ML IV ONE (21:03)
[2024-09-12] MEDS: KETOROLAC 30 MG/ML 1ML VIAL IV ONE (21:03)
[2024-09-12] MEDS: ONDANSETRON 4MG 2ML VIAL IV ONE (21:03)
[2024-09-12 21:09] LABS: SP GRAVITY,URINE MANUAL REFLEX 1.023 (1.002-1.035)
[2024-09-12 21:14] LABS: HEMATOCRIT 43.5 % (42.0-52.0); HEMOGLOBIN 14.3 g/dl (13.5-17.5); LYMPH # 0.8 10^3/uL (1.5-5.0); LYMPH % 11.3 % (24.0-44.0); MEAN CORPUSCULAR HEMOGLOBIN 30.4 pg (27.0-33.0); MEAN CORPUSCULAR HGB CONC 32.9 g/dl (32.0-36.5); MEAN CORPUSCULAR VOLUME 92.6 fl (80.0-96.0); MONO # 0.2 10^3/uL (0.0-0.8); MONO % 2.7 % (2.0-8.0); NEUTROPHILS # 6.3 10^3/uL (1.5-8.5); NEUTROPHILS % 85.7 % (36.0-66.0); PLATELET COUNT, AUTOMATED 215 10^3/uL (150-450); WHITE BLOOD COUNT 7.3 10^3/uL (4.0-10.0)
[2024-09-12 21:21] LABS: KETONE, URINE MANUAL REFLEX NEGATIVE (NEGATIVE); NITRITE, URINE MANUAL RFX NEGATIVE (NEGATIVE); PROTEIN, URINE MANUAL REFLEX 3+ mg/dL (NEGATIVE); UROBILINOGEN, UA MANUAL REFLEX NORMAL (NORMAL)
[2024-09-12 21:27] LABS: RBC, URINE MAN REFLEX TNTC /hpf (0-3); WBC, URINE MAN RFX TNTC /hpf (0-3)
[2024-09-12 21:28] LABS: HYALINE CAST, URINE RFX NONE SEEN /lpf (0-1); MICROSCOPIC EXAM RFX PERFORMED; SQUAMOUS EPITHELIAL URINE RFX NONE SEEN /hpf (SMALL AMT)
[2024-09-12 21:34] LABS: ALBUMIN 3.9 G/DL (3.2-5.2); BILIRUBIN,DIRECT 0.1 MG/DL (<0.4); BILIRUBIN,TOTAL 0.4 MG/DL (0.3-1.2); CALCIUM LEVEL 9.7 MG/DL (8.5-10.1); CREATININE FOR GFR 1.34 MG/DL (0.70-1.30); GLOMERULAR FILTRATION RATE 58.3 (>56); POTASSIUM SERUM 4.8 MMOL/L (3.5-5.1); TOTAL PROTEIN 7.2 G/DL (5.7-8.2)
[2024-09-13] MEDS ORDERED: PERC5TAB12 PO (00:28)
[2024-09-13 00:31] VITALS: BP 174/79; O2SAT 97
[2024-09-13] MEDS: OXYCODONE/APAP 5MG/325MG(HOME DOSE PACK) PO ONE (00:40)
== END 2024-09-13 00:48 | disposition home or self-care (01) ==
LOC: M ED 20:24
DX: R10.9 Unspecified abdominal pain (principal); R31.9 Hematuria, unspecified; I10 Essential (primary) hypertension; N20.0 Calculus of kidney; G47.30 Sleep apnea, unspecified; E66.01 Morbid (severe) obesity due to excess calories; Z68.41 Body mass index [BMI] 40.0-44.9, adult; Z88.0 Allergy status to penicillin; Z79.899 Other long term (current) drug therapy
CPT/HCPCS: 74176; 76000; 80048; 80076; 81000; 81015; 82365; 83690; 85025; 87086; 93041; 96361; 96374; 99285; C1769; C1894; C2617; J0131; J0690; J1100; J1885; J2250; J2405; J3010; Q9967

== ENCOUNTER → 2024-10-25 | Outpatient (CLI) | payer MEDICARE, OTHER ==
[~2024-10-25] MED LIST changes: +PERC5TAB12 PO
== END ==
LOC: M SOG 13:41
PROVIDERS: ATTEND Physician Assistant
DX: M25.551 Pain in right hip (principal); M16.11 Unilateral primary osteoarthritis, right hip; Z96.642 Presence of left artificial hip joint

== ENCOUNTER → 2025-02-12 | Outpatient (CLI) | payer MEDICARE, OTHER | LOC: M RAD 11:31 | PROVIDERS: ATTEND Physical Medicine & Rehabilitation | DX: N23 Unspecified renal colic (principal) ==

== ENCOUNTER → 2025-06-15 | Outpatient (CLI) | payer MEDICARE | LOC: M RAD 12:19 | PROVIDERS: ATTEND Physical Medicine & Rehabilitation | DX: M51.26 Other intervertebral disc displacement, lumbar region (principal); M16.11 Unilateral primary osteoarthritis, right hip; M11.251 Other chondrocalcinosis, right hip; M25.451 Effusion, right hip; Z96.642 Presence of left artificial hip joint; M65.951 Unspecified synovitis and tenosynovitis, right thigh ==

== ENCOUNTER → 2025-08-12 | Outpatient (CLI) | payer MEDICARE ==
[2025-08-12 15:02] LABS: COLLAGEN EPINEPHRINE 88 SECONDS (74-162)
== END ==
LOC: M LAB 13:57
PROVIDERS: ATTEND Physical Medicine & Rehabilitation
DX: Z01.818 Encounter for other preprocedural examination (principal)